=== PATIENT | female | born 1950 | race Caucasian/White ===

== ENCOUNTER → 2018-06-08 12:40 | Outpatient (CLI) | payer MEDICARE, OTHER, SELFPAY ==
--- NOTE | 2018-06-08 12:44 | VDLE_ITS ---
Reason For Study: LEG PAIN RIGHT LEFT CFV is compressible, spontaneous, phasic, CFV is compressible, spontaneous, phasic, competent and demonstrates normal competent, and demonstrates normal augmentation. augmentation. FV is compressible, spontaneous, phasic, FV is compressible, spontaneous, phasic, competent and demonstrates normal competent and demonstrates normal augmentation. augmentation. POP V is compressible, spontaneous, phasic, POP V is compressible, spontaneous, phasic, competent and demonstrates normal competent and demonstrates normal augmentation. augmentation. T/P Trunk is compressible. T/P Trunk is compressible. PTV is compressible. PTV is compressible. RT PerV is compressible. LT PerV is compressible. SFJ is competent SFJ is competent GSV is competent above knee GSV is competent above knee GSV is INCOMPETENT below knee with reflux GSV is INCOMPETENT below knee with reflux greater than .5 sec and diameter of .23 x .25 greater than .5 sec and diameter of .19 x .22 cm cm SSV is INCOMPETENT with reflux greater SSV is competent. than .5 sec and diameter of .22 x .28 cm. Procedure Exam performed in department. Interpretation Summary Deep veins of the lower extremities are bilaterally patent and compressible segmentally. There is no evidence of deep vein thrombosis on either side. Valvular competence appears intact within the proximal deep venous systems bilaterally. The greater saphenous veins appear bilaterally patent and compressible segmentally. Sapheno-femoral junctions are bilaterally competent . The right greater saphenous vein appears competent above the knee. The right greater saphenous vein appears incompetent below the knee. The left greater saphenous vein appears competent above the knee. The left greater saphenous vein appears incompetent below the knee. The right small saphenous vein is patent and incompetent. The left small saphenous vein is patent and competent. Ordering Physician: Valentín Yeung Referring Physician: Valentín Yeung Performed By: Valarie Horvath RVT
== END ==
PROVIDERS: Family Provider Family Medicine; PCP Family Medicine; Referring Provider Surgery; Visit Provider Surgery
DX: M79.605 Pain in left leg (principal); M79.604 Pain in right leg; R60.0 Localized edema; I83.10 Varicose veins of unspecified lower extremity with inflammation; I87.2 Venous insufficiency (chronic) (peripheral)
CPT/HCPCS: 93970

== ENCOUNTER → 2018-09-19 | Outpatient (CLI) | payer MEDICARE, OTHER, SELFPAY ==
--- NOTE | 2018-09-19 14:44 | US_ITS ---
STUDY: RENAL ULTRASOUND - COMPLETE REASON FOR EXAM: Female, 67 years old. UTI TECHNIQUE: Ultrasound evaluation of the kidneys was performed with real-time and static rodriguez-scale imaging. COMPARISON: None available. FINDINGS: RIGHT KIDNEY: Normal location of the right kidney, which is normal in size. The right kidney measures 12.3 cm. There is a normal cortex of the right kidney. There is no right renal mass or cyst. There are no right renal calculi. There is no right hydronephrosis. DISTAL RIGHT URETER: There is non-visualization of the distal right ureter. There is no demonstrated right ureterovesical junction calculus. There is a visualized right ureteral jet. LEFT KIDNEY: Normal location of the left kidney, which is normal in size. The left kidney measures 12.4 cm. There is a normal cortex of the left kidney. There is no left renal mass or cyst. There are no left renal calculi. There is no left hydronephrosis. DISTAL LEFT URETER: There is non-visualization of the distal left ureter. There is no demonstrated left ureterovesical junction calculus. There is a visualized left ureteral jet. BLADDER: The urinary bladder is partially distended and appears unremarkable. US/Kidney and Bladder IMPRESSION: Normal ultrasound of the kidneys and urinary bladder. Electronically Signed: Clarence Rome, at 16:31 EDT Tel , Service support ,
== END | disposition home or self-care (01) ==
LOC: US 14:40
PROVIDERS: Family Provider Family Medicine; PCP Family Medicine; Referring Provider Urology; Visit Provider Urology
DX: N39.0 Urinary tract infection, site not specified (principal)
CPT/HCPCS: 76770

== ENCOUNTER 2020-04-02 16:55 | Observation (INO) | payer MEDICARE, OTHER, SELFPAY ==
--- NOTE | 2020-03-30 09:55 | RAD_ITS ---
STUDY: X-RAY CHEST REASON FOR EXAM: Female, 69 years old. PREOP FOR BACK SURGERY. TECHNIQUE: PA and lateral views of the chest. COMPARISON: None. FINDINGS: The lungs are clear and expanded. There is no demonstrated pleural abnormality. Normal size heart. Normal mediastinum and rfansico. Normal visualized pulmonary arteries. Normal visualized aortic arch and descending thoracic aorta. Normal visualized thoracic spine. Normal visualized ribs, clavicles, and shoulders. There is no demonstrated abnormality of the visualized soft tissue structures of the upper abdomen. RAD/Chest PA and Lateral IMPRESSION: Normal x-ray examination of the chest. Electronically Signed: Jamal Chakraborty MD at 16:56 EST Tel , Service support ,
[2020-03-30 10:33] LABS: Absolute Lymphocyte Count 2.27 X10^3/uL (0.83-4.51); Basophil# 0.07 X10^3/uL; Eosinophil# 0.14 X10^3/uL; Eosinophils% 1.9 % (0-5); Hematocrit 44.2 % (37-47); Hemoglobin 14.8 g/dL (12.0-15.0); Lymphocyte # 2.27 X10^3/ul (4.0); Lymphocyte % 31.6 % (19-41); Mean Corp Hgb Conc 33.5 g/dL (32-36); Mean Corpuscular Hgb 28.8 pg (27.0-32.0); Mean Corpuscular Volume 86.2 fL (81-99); Mean Platelet Vol. 11.2 fl (6.2-12.0); Monocyte# 0.66 X10^3/uL; Monocyte% 9.2 % (0-10); NRBC Flagged by Analyzer 0 % (0-5); Neutrophil # 4.02 X10^3/uL (2.7-7.7); Platelet Count 256 K/mm3 (150-450); RBC Distribution Width CV 12.9 % (11.6-14.6); RBC Distribution Width SD 40.2 fl (35.1-43.9); Red Blood Count 5.13 M/mm3 (4.2-5.4); White Blood Count 7.2 K/mm3 (4.4-11.0)
[2020-03-30 10:46] LABS: International Normalized Ratio 1.1; Partial Thromboplast Time 31.7 Seconds (24.1-36.2); Prothrombin Time (Protime)PT. 13.8 SECONDS (11.7-14.9)
[2020-03-30 10:52] LABS: Hemoglobin A1c 7.1 % (3.8-5.6)
[2020-03-30 10:53] LABS: AST(SGOT) 43 U/L (15-37); Alanine Aminotransfer ALT/SGPT 76 U/L (13-56); Alkaline Phosphatase 96 U/L (45-117); Bilirubin, Direct 0.16 mg/dL (0.00-0.30); Globulin 4.1 g/dL (2.2-4.2); Protein, Total 8.1 g/dL (6.4-8.2)
[2020-04-02] VITALS (13 sets, daily range): BP systolic 116–164; BP diastolic 81–106; PULSE 66–143; RESP 12–18; TEMP 36.3–36.7; O2SAT 91–100; BMI 29.5
[2020-04-02] MEDS: Lactated Ringers 1,000 ML 100 ML IV ×3 (11:50→16:20)
[2020-04-02 11:56] LABS: Bedside Glucose 148 mg/dL (70-110)
--- NOTE | 2020-04-02 12:45 | RAD_ITS ---
STUDY: X-RAY - LUMBAR SPINE REASON FOR EXAM: Female, 69 years old. LAMINECTOMY L4-5 DISCECTOMY TECHNIQUE: Single intraoperative view(s) of the lumbar spine were obtained. COMPARISON: None FINDINGS: The metallic marker is seen posterior to the L4-L5 disc space level. RAD/Lumbar Spine 2 or 3 Views IMPRESSION: Localization instrument is seen posterior to the L4-L5 disc space. Electronically Signed: Aayush Mazariegos MD at 15:49 EST , Service support ,
[2020-04-02] MEDS: Cefazolin 1 GM/50 ML BAG IV ×2 (12:50→20:32)
[2020-04-02] MEDS: THROMBIN (RECOMBINANT) 20,000 UNIT VIAL 20000 UNIT TOPICAL (13:16)
--- NOTE | 2020-04-02 15:35 | PCM.PN.ORT ---
Subjective: The patient was seen and examined postoperatively in the PACU. She is doing well. Her pain is well controlled. She is resting comfortably. She is alert and answering questions and following commands. She has no complaints. - Physical Exam Vitals/I&O's: Vital Signs Temp Pulse Resp BP Pulse Ox 98.1 F 79 16 164/103 H 96 04/02/20 11:45 04/02/20 11:45 04/02/20 11:45 04/02/20 11:45 04/02/20 11:45 Oxygen Delivery Method Room Air Weight: 172 lb 6.424 oz Body Mass Index (BMI) 29.5 General: Alert, Oriented x3, Cooperative, No apparent distress HEENT: PERRLA, EOMI Neck: Supple, No JVD Lungs: Normal air movement Cardiovascular: Regular rate, Regular Rhythm Abdomen: Bowel Sounds Present, Soft, Non Tender, Non-Distended Extremities: No edema, Capillary Refill Less than 3 Seconds Skin: - - Dressing clean dry and intact Neurological: Cranial nerves II-XII grossly intact, Deep Tendon Reflexes 2+/4 and Symmetrical, Neuro grossly intact, Motor Exam 5/5 strength throughout Psych/Mental Status: Normal Affect, Appropriate Laboratory Results 04/02/20 11:35: POC Glucose 148 H Current Medications Lactated Ringer's () 1,000 mls @ 100 mls/hr IV .Q10H [facility] Last Admin: 04/02/20 11:50 Dose: 100 mls/hr Documented by: Cefazolin Sodium () 1 gm in 50 mls @ 100 mls/hr IV Q8H [facility] Morphine Sulfate (Morphine 4 Mg/Ml Syringe) 2 - 4 mg IV Q2H PRN PRN PRN Reason: Pain Score 6-10 Ondansetron HCl (Ondansetron 4 Mg/2 Ml Vial) 4 mg IV Q8H PRN PRN PRN Reason: NAUSEA Medical Necessity - Tobacco Use Smoking Status: Never smoker Tobacco Use: Non-smoker Assessment/Plan All Active Problems Lumbar herniated disc (Acute) Admit to floor See orders Pain control and mobilization as tolerated Advance diet as tolerated
--- NOTE | 2020-04-02 15:38 | PCM.OPRPT ---
Problem List (1) Lumbar herniated disc Status: Acute Report of Operation Date of Procedure: 04/02/20 Pre-Operative Diagnosis: Lumbar herniated disc, L5-S1 right. Lumbar stenosis, L5-S1 Post-Operative Diagnosis: Lumbar herniated disc, L5-S1 right. Lumbar stenosis, L5-S1 Surgery/Procedure Performed:: Right L5-S1 laminotomy discectomy Description of Surgical Findings:: Statement of medical necessity: The patient is a 69-year-old female with intractable back and right leg pain. Image studies confirm the above diagnosis. She has failed conservative treatment to include: Medicine, therapy, and injections. The patient opted for operative intervention, understanding the risks to include, but not limited to, infection, bleeding, damage to nerves, arteries, and veins, possibility of spinal fluid leak, continued pain, need for further surgery, deep vein thrombosis, pulmonary embolism, heart attack, risk of stroke, or . Description of procedure: The patient was identified in the preoperative holding area. There she received the preoperative antibiotics, Ancef, and then transferred to the operating suite. Once in the operating suite, after general endotracheal anesthesia was established, the patient was transferred to the [place] operating table in the prone position. All bony prominences were padded accordingly. The lumbar spine was prepped and draped in the standard surgical fashion. Midline incision was made and taken down to the lumbodorsal fascia. This was divided and subperiosteal dissection taken down to the level of the facet joint on the right side at L5-S1. Deep retractors were placed. At this point a curette was utilized in the L5-S1 foramen and a foraminotomy was performed using a Kerrison. The nerve was identified, and the nerve root was then retracted medially. A large subligamentous disc herniation was identified. A knife was used to perform an annulotomy and a large subligamentous disc was removed using pituitaries, any loose fragments were identified and removed and the wound was irrigated. Tisseel was placed over the dura as a hemostatic agent. The fascia was closed with #1 Vicryl, subcutaneous with 2-0 Vicryl, skin with 2-0 nylon. Sterile dressing was applied with 4 x 4, ABD, and tape. Sponge, instrument, and needle counts were correct at the end of the case. The patient was extubated and taken to the PACU without incident. Type of Anesthesia:: General Specimen's removed: Lumbar herniated disc Drains: None Estimated Blood Loss (mL): 25 cc Fluids Replaced: 1500 cc - Complications None - Admit VTE Documentation VTE Mechan Device Prophylaxis: SCD's
[2020-04-02 16:06] LABS: Bedside Glucose 137 mg/dL (70-110)
[2020-04-02] MEDS: Ondansetron 4 MG/2 ML Vial IV (17:48)
--- NOTE | 2020-04-02 18:56 | PCM.PROGNOTE ---
<Chema Wymanssica EQUIPMENT COORDINATOR - Last Filed: 04/02/20 19:02> Patient Problems: Active and Suspected Problems Lumbar herniated disc (Acute) Subjective: Patient seen and examined. Recently arrived to floor from PACU. Denies significant pain currently. Drowsy during assessment. - Physical Exam Vitals/I&O's: Vital Signs Temp Pulse Resp BP Pulse Ox 98.1 F 76 18 141/86 H 95 04/02/20 17:30 04/02/20 17:30 04/02/20 17:30 04/02/20 17:30 04/02/20 17:30 Oxygen Flow Rate (L/min) 2 Oxygen Delivery Method Nasal Cannula Weight: 172 lb 6.424 oz Body Mass Index (BMI) 29.5 Finger Stick Blood Glucose 137 Intake and Output for Last 24 Hours 03/31/20 04/01/20 04/02/20 23:59 23:59 23:59 Intake Total 2049 / 0 Output Total 950 / 950 Balance 1100 / 1100 General: Oriented x3, Cooperative, No apparent distress HEENT: Atraumatic, PERRLA, EOMI, Normocephalic Neck: Supple, No JVD, Negative Carotid Bruits Lungs: Clear to auscultation, Normal air movement Cardiovascular: Regular rate, No murmurs Abdomen: Bowel Sounds Present, Soft, Non Tender Extremities: No clubbing, No cyanosis, No edema, Capillary Refill Less than 3 Seconds Skin: No rashes, No breakdown Musculoskeletal: No Tenderness to Palpation of Joints or Extremities Neurological: Cranial nerves II-XII grossly intact, Neuro grossly intact Psych/Mental Status: Normal Affect, Appropriate Laboratory Results 04/02/20 11:35: POC Glucose 148 H 04/02/20 16:02: POC Glucose 137 H Current Medications Hydrocodone Bitart/Acetaminophen (Hydrocodone Bitartrate/Apap 5/325 Tablet) 1 - 2 tablet PO Q6H PRN PRN PRN Reason: Pain Score 1-10 Lactated Ringer's () 1,000 mls @ 100 mls/hr IV .Q10H [facility] Last Admin: 04/02/20 16:20 Dose: 100 mls/hr Documented by: Cefazolin Sodium () 1 gm in 50 mls @ 100 mls/hr IV Q8H [facility] Stop: 04/03/20 05:19 Sodium Chloride () 250 mls @ 15 mls/hr IV .[id number] PRN PRN Reason: Saline Flush Sodium Chloride () 250 mls @ 15 mls/hr IV .[id number] PRN PRN Reason: Additional IVPB Infusion Morphine Sulfate (Morphine 4 Mg/Ml Syringe) 2 - 4 mg IV Q2H PRN PRN PRN Reason: Pain Score 6-10 Morphine Sulfate (Morphine 2 Mg/Ml Syringe) 2 - 4 mg IV Q2H PRN PRN PRN Reason: Pain Score 6-10 Ondansetron HCl (Ondansetron 4 Mg/2 Ml Vial) 4 mg IV Q8H PRN PRN PRN Reason: NAUSEA Last Admin: 04/02/20 17:48 Dose: 4 mg Documented by: Sodium Chloride (0.9% Saline Lock 10 Ml Syringe) 10 - 40 ml IV UD PRN PRN Reason: SALINE FLUSH Medical Necessity - Tobacco Use Smoking Status: Never smoker Tobacco Use: Non-smoker Assessment/Plan All Active Problems Lumbar herniated disc (Acute) 1. Lumbar right herniated disc/lumbar stenosis [id number] post right L5-S1 laminectomy/discectomy by Dr. Hare. Management per surgery. 2. Atrial fibrillation-continue Cardizem, carvedilol. Does not appear to be on anticoagulation at baseline. 3. Hypertension-continue carvedilol, losartan, Cardizem. 4. Hyperlipidemia-continue statin. 5. Type 2 diabetes [id number]-[id number] with sliding scale insulin. 6. HAILEE-continue home CPAP regimen. DVT prophylaxis-SCDs This patient was seen by BERNARD Otoole under the supervision of Dr. Sapp. <Jarrett Sapp F - Last Filed: 04/02/20 19:15> - Physical Exam Vitals/I&O's: Vital Signs Temp Pulse Resp BP Pulse Ox 98.1 F 76 18 141/86 H 95 04/02/20 17:30 04/02/20 17:30 04/02/20 17:30 04/02/20 17:30 04/02/20 17:30 Oxygen Flow Rate (L/min) 2 Oxygen Delivery Method Nasal Cannula Weight: 172 lb 6.424 oz Body Mass Index (BMI) 29.5 Finger Stick Blood Glucose 137 Intake and Output for Last 24 Hours 03/31/20 04/01/20 04/02/20 23:59 23:59 23:59 Intake Total 2049 / 2049 Output Total 950 / 950 Balance 1100 / 1100 Laboratory Results 04/02/20 11:35: POC Glucose 148 H 04/02/20 16:02: POC Glucose 137 H Current Medications Hydrocodone Bitart/Acetaminophen (Hydrocodone Bitartrate/Apap 5/325 Tablet) 1 - 2 tablet PO Q6H PRN PRN PRN Reason: Pain Score 1-10 Carvedilol (Carvedilol 25 Mg Tablet) 25 mg PO BID [facility] Diltiazem HCl (Diltiazem Cd 120 Mg Capsule) 240 mg PO DAILY [facility] Lactated Ringer's () 1,000 mls @ 100 mls/hr IV .Q10H [facility] Last Admin: 04/02/20 16:20 Dose: 100 mls/hr Documented by: Cefazolin Sodium () 1 gm in 50 mls @ 100 mls/hr IV Q8H [facility] Stop: 04/03/20 05:19 Sodium Chloride () 250 mls @ 15 mls/hr IV .[id number] PRN PRN Reason: Saline Flush Sodium Chloride () 250 mls @ 15 mls/hr IV .[id number] PRN PRN Reason: Additional IVPB Infusion Insulin Human Lispro (Insulin Lispro 100 Unit/Ml Insuln.Pen) 0 unit SC ACHS [facility]; Protocol Losartan Potassium (Losartan Potassium 100 Mg Tablet) 100 mg PO DAILY [facility] Morphine Sulfate (Morphine 4 Mg/Ml Syringe) 2 - 4 mg IV Q2H PRN PRN PRN Reason: Pain Score 6-10 Morphine Sulfate (Morphine 2 Mg/Ml Syringe) 2 - 4 mg IV Q2H PRN PRN PRN Reason: Pain Score 6-10 Ondansetron HCl (Ondansetron 4 Mg/2 Ml Vial) 4 mg IV Q8H PRN PRN PRN Reason: NAUSEA Last Admin: 04/02/20 17:48 Dose: 4 mg Documented by: Pravastatin Sodium (Pravastatin 20 Mg Tablet) 10 mg PO QHS [facility] Sodium Chloride (0.9% Saline Lock 10 Ml Syringe) 10 - 40 ml IV UD PRN PRN Reason: SALINE FLUSH Addendum: Dr. Sapp I personally examined the patient and reviewed the chart. I agree with the above. 69-year-old female seen upon arrival to the third floor. She presented to the hospital for elective L5-S1 laminectomy on the right secondary to a right herniated disc and stenosis. Because she was seen upon admission to the floor, she is little bit drowsy, though easily arousable. Her medical history is stable, will continue with her Cardizem and Coreg for her A. fib and hypertension. Continue to monitor her blood sugars for type 2 diabetes. Because she still recovering from anesthesia, she is on 2 L nasal cannula. I do anticipate that this could be weaned overnight into tomorrow morning. OBSV E&M: [id number] Subsequent observation care L3
[2020-04-02] MEDS: HYDROcodone Bitartrate/Apap 5/325 Tablet PO (21:34)
[2020-04-02] MEDS: Insulin Lispro 100 UNIT/ML INSULN.PEN SC (21:34)
[2020-04-02] MEDS: Carvedilol 25 MG Tablet PO (21:35)
[2020-04-02] MEDS: Pravastatin 20 MG Tablet 10 MG PO (21:36)
[2020-04-02 22:35] LABS: Bedside Glucose 214 mg/dL (70-110)
[2020-04-03] MEDS: Phenol/Sodium Phenolate 180ML 5 SPRAY MM ×2 (00:05→06:29)
[2020-04-03] MEDS: Lactated Ringers 1,000 ML 100 ML IV (00:06)
[2020-04-03 03:30] VITALS: BP 140/88; PULSE 84; RESP 16; TEMP 37.1; O2SAT 99
[2020-04-03] MEDS: Cefazolin 1 GM/50 ML BAG IV (05:06)
[2020-04-03] MEDS: Insulin Lispro 100 UNIT/ML INSULN.PEN SC (06:27)
[2020-04-03 06:40] LABS: Bedside Glucose 161 mg/dL (70-110)
[2020-04-03 08:00] VITALS: BP 146/85; PULSE 81; RESP 16; TEMP 36.8; O2SAT 100
--- NOTE | 2020-04-03 08:01 | DS.PCM_ITS ---
Discharge Date and Diagnosis - Problem List Patient Problems: Active and Suspected Problems Lumbar herniated disc (Acute) Date of Admission: 04/02/20 Date of Discharge: 04/03/20 - Primary Discharge Diagnosis Acute Problems: Active Problems Lumbar herniated disc (Acute) Hospital Course and Treatment Internal medicine for medical management Operations: - - Right L4-5 laminotomy discectomy Summary of Care Provided: The patient is a 69 year old F [] underwent a right L4-5 laminotomy discectomy on 04/02/2020. She was subsequently admitted to the floor for observation. Internal medicine was consulted for medical management. She did well overnight. Her pain was well controlled. No medical issues. She was subsequently discharged on 04/03/2020 to follow-up in clinic in [address] Hare for suture removal Patient Problems: Active and Suspected Problems Lumbar herniated disc (Acute) Subjective: The patient was seen and examined. She is postop day 1 status post right L4-5 laminotomy discectomy. She is sitting up in bed comfortably eating breakfast. Her pain is well controlled. She has no complaints. - Physical Exam Vitals/I&O's: Vital Signs Temp Pulse Resp BP Pulse Ox 98.7 F 84 16 140/88 H 99 04/03/20 03:30 04/03/20 03:30 04/03/20 03:30 04/03/20 03:30 04/03/20 03:30 Oxygen Flow Rate (L/min) 2 Oxygen Delivery Method Nasal Cannula Weight: 172 lb 6.424 oz Body Mass Index (BMI) 29.5 Finger Stick Blood Glucose 137 Intake and Output for Last 24 Hours 04/01/20 04/02/20 04/03/20 23:59 23:59 23:59 Intake Total 2523.33 / 2523.33 856.67 / 856.67 Output Total 950 / 1950 1999 Balance 1573.33 / 573.33 -1143.33 / -1143.33 General: Alert, Oriented x3, No apparent distress HEENT: PERRLA, EOMI Neck: Supple, No JVD Lungs: Normal air movement Cardiovascular: Regular rate, Regular Rhythm Abdomen: Bowel Sounds Present, Soft, Non Tender, Non-Distended Extremities: No cyanosis, No edema, Capillary Refill Less than 3 Seconds, No Calf Tenderness Skin: - - Dressing is clean dry and intact Neurological: Cranial nerves II-XII grossly intact, Deep Tendon Reflexes 2+/4 and Symmetrical, Neuro grossly intact, Motor Exam 5/5 strength throughout Psych/Mental Status: Normal Affect, Appropriate Laboratory Results 04/02/20 11:35: POC Glucose 148 H 04/02/20 16:02: POC Glucose 137 H 04/02/20 21:31: POC Glucose 214 H 04/03/20 06:26: POC Glucose 161 H Current Medications Hydrocodone Bitart/Acetaminophen (Hydrocodone Bitartrate/Apap 5/325 Tablet) 1 - 2 tablet PO Q6H PRN PRN PRN Reason: Pain Score 1-10 Last Admin: 04/02/20 21:34 Dose: 2 tablet Documented by: Carvedilol (Carvedilol 25 Mg Tablet) 25 mg PO BID [facility] Last Admin: 04/02/20 21:35 Dose: 25 mg Documented by: Diltiazem HCl (Diltiazem Cd 120 Mg Capsule) 240 mg PO DAILY [facility] Lactated Ringer's () 1,000 mls @ 100 mls/hr IV .Q10H [facility] Last Infusion: 04/03/20 05:36 Dose: 100 mls/hr Documented by: Sodium Chloride () 250 mls @ 15 mls/hr IV .[id number] PRN PRN Reason: Saline Flush Sodium Chloride () 250 mls @ 15 mls/hr IV .[id number] PRN PRN Reason: Additional IVPB Infusion Insulin Human Lispro (Insulin Lispro 100 Unit/Ml Insuln.Pen) 0 unit SC ACHS [facility]; Protocol Last Admin: 04/03/20 06:27 Dose: 1 u Documented by: Losartan Potassium (Losartan Potassium 100 Mg Tablet) 100 mg PO DAILY [facility] Morphine Sulfate (Morphine 4 Mg/Ml Syringe) 2 - 4 mg IV Q2H PRN PRN PRN Reason: Pain Score 6-10 Morphine Sulfate (Morphine 2 Mg/Ml Syringe) 2 - 4 mg IV Q2H PRN PRN PRN Reason: Pain Score 6-10 Ondansetron HCl (Ondansetron 4 Mg/2 Ml Vial) 4 mg IV Q8H PRN PRN PRN Reason: NAUSEA Last Admin: 04/02/20 17:48 Dose: 4 mg Documented by: Pantoprazole Sodium (Pantoprazole Sodium 20 Mg Tablet) 20 mg PO DAILY [facility] Phenol/Menthol (Phenol/Sodium Phenolate 180ml) 5 spray MM Q2H PRN PRN PRN Reason: SORE THROAT Last Admin: 04/03/20 06:29 Dose: 5 spray Documented by: Pravastatin Sodium (Pravastatin 20 Mg Tablet) 10 mg PO QHS [facility] Last Admin: 04/02/20 21:36 Dose: 10 mg Documented by: Prochlorperazine Edisylate (Prochlorperazine 10 Mg/2 Ml Vial) 10 mg IV Q6H PRN PRN PRN Reason: Nausea Sodium Chloride (0.9% Saline Lock 10 Ml Syringe) 10 - 40 ml IV UD PRN PRN Reason: SALINE FLUSH Discharge Diet: No Restrictions Discharge Activity: - - No bending twisting or lifting greater than 5 pounds. Daily dry dressing changes with iodine to incision. Keep dressing clean dry and intact. Okay to cover incision with waterproof dressing to shower. No bath tubs, swimming pools, hot tubs, etc. May resume sexual activity in: 1-2 weeks Weight Bearing Status: Weight bearing as tolerated Call your doctor if your incision/area has: Continuous Slow Oozing, Sudden Increased Bleeding, Increased Pain/ Swelling, Increased Redness, Foul Smelling Discharge, Swelling at the incision site Call your doctor if you observe: Fever of 101 or Higher, Coldness, Increased Pain, Numbness or Tingling, Change in Color, Inability to urinate, Inability to have a bowel movement, Using more than one pad per hour, Shortness of breath, Dizziness, Fainting spells, Swelling in the ankles, Chest pain, Prolonged hiccoughing, Increased palpitations (irregular heartbeat), Calf discomfort, Uncontrolled pain Change Dressing in (Days):: 1 - Change dressing daily Cleanse incision/area with: Do not get Incision Wet, Keep Dressing Clean & Dry Home Medications: Medications to take at Discharge Ascorbic Acid [Vitamin C] 500 mg PO DAILY 03/19/20 Carvedilol [Coreg (Beta Jeffrey)] 25 mg PO BID 03/19/20 Cranberry 500 mg PO DAILY 03/19/20 Diltiazem HCl [Cartia Xt] 240 mg PO DAILY 03/19/20 Dulaglutide [Trulicity] 1.5 mg SQ QWEEK 03/19/20 Glucosam/Beau-Msm1/C/Jam/Bosw [Osteo Bi-Flex Caplet] 1 ea PO DAILY 03/19/20 Lansoprazole 15 mg PO DAILY 03/19/20 Losartan Potassium [Cozaar] 100 mg PO DAILY 03/19/20 Niacin 1,000 mg PO DAILY 03/19/20 Aladdin-3 Fatty Acids/Fish Oil [Fish Oil 1,000 mg Capsule] 1 ea PO DAILY 03/19/20 Pravastatin [Pravachol] 10 mg PO QHS 03/19/20 Hydrocodone Bitart/Apap 5-325 [[place] 5MG-325MG] 1 tablet PO Q4H PRN PRN 7 Days #28 tablet 04/03/20 Following Prescriptions Were Given to Patient: Hydrocodone Bitart/Apap 5-325 [[place] 5MG-325MG] 1 tablet PO Q4H PRN PRN 7 Days #28 tablet PRN Reason: Pain Transmission Status: Sent to [id number] Primary Care Physician: Serge Black MD [Primary Care Provider] - Please Follow Up With: Ryan Hare DO - 3 weeks as scheduled Disposition: Home Minutes spent on discharge:: 15 Patient Condition:: Good Medical Necessity - Tobacco Use Smoking Status: Never smoker Tobacco Use: Non-smoker Meaningful Use Info Meaningful Use Diagnoses (Choose all that apply): None applicable
[2020-04-03] MEDS: HYDROcodone Bitartrate/Apap 5/325 Tablet PO (08:10)
[2020-04-03] MEDS: Pantoprazole Sodium 20 MG Tablet PO (08:11)
[2020-04-03] MEDS: Losartan Potassium 100 MG Tablet PO (08:11)
[2020-04-03] MEDS: dilTIAZem CD 120 MG Capsule 240 MG PO (08:11)
[2020-04-03] MEDS: Carvedilol 25 MG Tablet PO (08:11)
--- NOTE | 2020-04-03 08:40 | PCM.PN.HOSP ---
Patient Problems: Active and Suspected Problems Lumbar herniated disc (Acute) Reason for Visit: Follow-up for lumbar spine surgery, laminectomy/discectomy Objective: Seen and examined. Patient has mild back pain and muscle stiffness after surgery. Heart rate and blood pressure are normal. No fever. Physical exam General: Alert, Oriented x3, Cooperative HEENT: Atraumatic, PERRLA, EOMI, Normocephalic Oral: No Gingival or Mucosal Lesions/ Ulcerations Neck: Supple, No JVD, Negative Carotid Bruits Lungs: Air entry diminished in bilateral lung bases. No crepitation/rhonchi no hypoxia Cardiovascular: Regular rate, Regular Rhythm, Normal S1, Normal S2, No murmurs Abdomen: Bowel Sounds Present, Soft, Non Tender, Non-Distended : No renal angle tenderness. No suprapubic tenderness. Extremities: No edema, Capillary Refill Less than 3 Seconds Skin: No rashes, No breakdown Musculoskeletal: No Tenderness to Palpation of Joints or Extremities Spine: Lumbar surgical dressing is dry. Paravertebral muscle tenderness present. Neurological: Cranial nerves II-XII grossly intact, Deep Tendon Reflexes 2+/4 and Symmetrical, Neuro grossly intact Psych/Mental Status: Normal Affect, Appropriate. Vitals/I&O's: Vital Signs Temp Pulse Resp BP Pulse Ox 98.2 F 81 16 146/85 H 100 04/03/20 08:00 04/03/20 08:00 04/03/20 08:00 04/03/20 08:00 04/03/20 08:00 Oxygen Flow Rate (L/min) 2 Oxygen Delivery Method Room Air Weight: 172 lb 6.424 oz Body Mass Index (BMI) 29.5 Finger Stick Blood Glucose 137 Intake and Output for Last 24 Hours 04/01/20 04/02/20 04/03/20 23:59 23:59 23:59 Intake Total 2523.33 / 2523.33 856.67 / 856.67 Output Total 950 / 1950 1999 / 1999 Balance 1573.33 / 573.33 -1143.33 / -1143.33 Laboratory Results 04/02/20 11:35: POC Glucose 148 H 04/02/20 16:02: POC Glucose 137 H 04/02/20 21:31: POC Glucose 214 H 04/03/20 06:26: POC Glucose 161 H Current Medications Hydrocodone Bitart/Acetaminophen (Hydrocodone Bitartrate/Apap 5/325 Tablet) 1 - 2 tablet PO Q6H PRN PRN PRN Reason: Pain Score 1-10 Last Admin: 04/03/20 08:10 Dose: 2 tablet Documented by: Carvedilol (Carvedilol 25 Mg Tablet) 25 mg PO BID [facility] Last Admin: 04/03/20 08:11 Dose: 25 mg Documented by: Diltiazem HCl (Diltiazem Cd 120 Mg Capsule) 240 mg PO DAILY [facility] Last Admin: 04/03/20 08:11 Dose: 240 mg Documented by: Lactated Ringer's () 1,000 mls @ 100 mls/hr IV .Q10H [facility] Last Infusion: 04/03/20 05:36 Dose: 100 mls/hr Documented by: Sodium Chloride () 250 mls @ 15 mls/hr IV .[id number] PRN PRN Reason: Saline Flush Sodium Chloride () 250 mls @ 15 mls/hr IV .[id number] PRN PRN Reason: Additional IVPB Infusion Insulin Human Lispro (Insulin Lispro 100 Unit/Ml Insuln.Pen) 0 unit SC [facility]; Protocol Last Admin: 04/03/20 06:27 Dose: 1 u Documented by: Losartan Potassium (Losartan Potassium 100 Mg Tablet) 100 mg PO DAILY [facility] Last Admin: 04/03/20 08:11 Dose: 100 mg Documented by: Morphine Sulfate (Morphine 4 Mg/Ml Syringe) 2 - 4 mg IV Q2H PRN PRN PRN Reason: Pain Score 6-10 Morphine Sulfate (Morphine 2 Mg/Ml Syringe) 2 - 4 mg IV Q2H PRN PRN PRN Reason: Pain Score 6-10 Ondansetron HCl (Ondansetron 4 Mg/2 Ml Vial) 4 mg IV Q8H PRN PRN PRN Reason: NAUSEA Last Admin: 04/02/20 17:48 Dose: 4 mg Documented by: Pantoprazole Sodium (Pantoprazole Sodium 20 Mg Tablet) 20 mg PO DAILY [facility] Last Admin: 04/03/20 08:11 Dose: 20 mg Documented by: Phenol/Menthol (Phenol/Sodium Phenolate 180ml) 5 spray MM Q2H PRN PRN PRN Reason: SORE THROAT Last Admin: 04/03/20 06:29 Dose: 5 spray Documented by: Pravastatin Sodium (Pravastatin 20 Mg Tablet) 10 mg PO QHS MARIUSZ Last Admin: 04/02/20 21:36 Dose: 10 mg Documented by: Prochlorperazine Edisylate (Prochlorperazine 10 Mg/2 Ml Vial) 10 mg IV Q6H PRN PRN PRN Reason: Nausea Sodium Chloride (0.9% Saline Lock 10 Ml Syringe) 10 - 40 ml IV UD PRN PRN Reason: SALINE FLUSH STROKE Vital Signs/Narrative: Vital Signs Temp Pulse Resp BP Pulse Ox 04/03/20 08:00 98.2 F 81 16 146/85 H 100 Medical Necessity - Tobacco Use Smoking Status: Never smoker Tobacco Use: Non-smoker Assessment/Plan All Active Problems Lumbar herniated disc (Acute) This 69-year-old female was admitted for elective L5-S1 lumbar herniated disc with history of lumbar spinal canal stenosis L5-S1. Patient had right L5-S1 laminectomy and discectomy. 1. Lumbar right herniated disc/lumbar stenosis Q0-R0-[id number] had chronic back pain with radiation to right leg. Surgical dressing is dry. Patient is being discharged by surgeon. Patient is medically stable and follow with PCP. Anticoagulation for DVT prophylaxis as per surgeon discretion. 2. Atrial fibrillation-continue Cardizem, carvedilol. Does not appear to be on anticoagulation at baseline. 3. Hypertension-continue carvedilol, losartan, Cardizem. 4. Hyperlipidemia-continue statin. 5. Type 2 diabetes mellitus-glucose are between 137, 214 and 161. Patient on Trulicity at home. 6. HAILEE-continue home CPAP regimen. Patient is being discharged by spine surgeon Dr. Hare. Follow-up PCP. Laboratory Results 04/02/20 16:02: POC Glucose 137 H 04/02/20 21:31: POC Glucose 214 H 04/03/20 06:26: POC Glucose 161 H Clinical Impression(s) from Imaging Studies Chest X-Ray 03/30/20 09:55 IMPRESSION: Normal x-ray examination of the chest. Electronically Signed: Jamal Chakraborty MD at 16:56 EST Tel , Service support , Lumbar Spine X-Ray 04/02/20 12:45 IMPRESSION: Localization instrument is seen posterior to the L4-L5 disc space. Electronically Signed: Aayush Mazariegos MD at 15:49 EST , Service support , Inpatient E&M: 52503 Subs Hosp L2
[2020-04-03 10:19] VITALS: O2SAT 99
--- NOTE | 2020-04-03 10:29 | PHA.DC.MC ---
Pharmacy Service has performed discharge medication reconciliation and counseling for this patient. 1. NORCO 5/325MG 1T PO Q4H PRN PAIN X 7 DAYS The patient's discharge medication list was reviewed for discrepancies and discrepancies were resolved. Home Medications Ascorbic Acid [Vitamin C] 500 mg PO DAILY 03/19/20 Carvedilol [Coreg (Beta Jeffrey)] 25 mg PO BID 03/19/20 Cranberry 500 mg PO DAILY 03/19/20 Diltiazem HCl [Cartia Xt] 240 mg PO DAILY 03/19/20 Dulaglutide [Trulicity] 1.5 mg SQ QWEEK 03/19/20 Glucosam/Beau-Msm1/C/Jam/Bosw [Osteo Bi-Flex Caplet] 1 ea PO DAILY 03/19/20 Lansoprazole 15 mg PO DAILY 03/19/20 Losartan Potassium [Cozaar] 100 mg PO DAILY 03/19/20 Niacin 1,000 mg PO DAILY 03/19/20 [place]-3 Fatty Acids/Fish Oil [Fish Oil 1,000 mg Capsule] 1 ea PO DAILY 03/19/20 Pravastatin [Pravachol] 10 mg PO QHS 03/19/20 Hydrocodone Bitart/Apap 5-325 [[place] 5MG-325MG] 1 tab PO Q4H PRN PRN 7 Days #28 tab 04/03/20 The patient was counseled on the following discharge medications and changes in medications for homegoing were reviewed. The Reason for Use, instructions for use, and potential side effects were reviewed for all new medications. The patient's questions regarding all of their medications were answered. The patient was able to verbally demonstrate an understanding of their discharge medications. Patient counseled by pharmacy operations specialistBen.
--- NOTE | 2020-04-03 10:40 | CASEMGMT ---
RN CM CORRECTIONAL THERAPY TEACHER CM to room to meet with patient for initial transition planning/care coordination assessment. RN ARNOLD introduced self and role at [facility]. Pt voices understanding and consents to assessment at this time. Pt sitting up in chair in room in no distress at this time. Son, Jordan, @ bedside. Pt is A/O at this time and answers all questions appropriately. Care providers, pharmacy, and demographics verified/updated at this time. PCP: Dr Wooten Specialists: Dr Hare--ortho, Dr Hernandez--cardiology in [place] Preferred Pharmacy: [facility] Insurance: [employer] [facility] Prescription Benefit: Yes Living Will/HPOA: Has both LW and Healthcare POA, who is her , Flo LNOK: , Flo. 2 sons: Jordan and Lamonte Living Arrangements: Lives w/her , Flo. Son and 19-yr-old grandson live with them. They live in a one-story home w/3 steps to enter. Home is handicap accessible. had previous stroke and pt helps assist him and manages home mgmt tasks. Son able to help. Pt would like to hire cleaning lady. She is aware insurance does not pay for this and cost would be [id number]. DME: States has the following DME: shower chair, cane, walker, rollator, CPAP, rails/grab bars, collar shaper operator, sock aid Pt states no need for further DME at this time. HHC/SNF: No history of either. Declines need for HHC. States will f/u with Dr Hare at her next appt and will discuss possible OP therapy at that time. Pt wishes to return home and states has no concerns with going home at time of discharge. CM to follow for any discharge planning/needs. Pt voices no concerns/needs at this time. Advised pt to ask for CM if any questions/concerns/needs arise. Voices understanding. PLAN: Home w/family support and discharge plans in place. Theo OWENS RN, CM
[2020-04-03 11:43] VITALS: BP 121/66; PULSE 86; RESP 18; TEMP 36.7; O2SAT 96
== END 2020-04-03 11:45 | disposition home or self-care (01) ==
LOC: AC 17:07 → MS3 17:07
PROVIDERS: Anesthesiology; Admitting Provider Orthopaedic Surgery; PCP Family Medicine; Referring Provider Orthopaedic Surgery; Visit Provider Orthopaedic Surgery
PROC: (CPT 63030; principal; 2020-04-02 12:15)
DX: M48.061 Spinal stenosis, lumbar region without neurogenic claudication (principal); M51.26 Other intervertebral disc displacement, lumbar region; M47.26 Other spondylosis with radiculopathy, lumbar region; E11.9 Type 2 diabetes mellitus without complications; Z79.01 Long term (current) use of anticoagulants; K21.9 Gastro-esophageal reflux disease without esophagitis; I10 Essential (primary) hypertension; G47.30 Sleep apnea, unspecified; E78.5 Hyperlipidemia, unspecified; G47.33 Obstructive sleep apnea (adult) (pediatric); Z79.899 Other long term (current) drug therapy; Z79.84 Long term (current) use of oral hypoglycemic drugs
CPT/HCPCS: 00670; 63030; 36415; 71046; 72100; 76000; 80076; 82962; 83036; 85025; 85610; 85730; 96361; 96365; 96366; 96375; 97162; 97166; 99218; J7120; G0378; G0379; J2405

== ENCOUNTER → 2021-11-15 | Outpatient (CLI) | payer MEDICARE, OTHER, SELFPAY ==
[2021-11-15 15:46] LABS: Erythrocyte Sedimentation Rate 9 mm/hr (0-30)
[2021-11-15 15:53] LABS: CRP < 2.90 mg/L (0.0-3.0); Rheumatoid Factor < 10.0 IU/mL (<15)
[2021-11-17 16:22] LABS: ANTINUCLEAR ANTIBODIES DIRECT Negative (Negative)
[2021-11-25 08:22] LABS: HLA B27 Negative (.)
== END | disposition home or self-care (01) ==
LOC: MTLAB 11:51
PROVIDERS: PCP Family Medicine; Referring Provider Physician Assistant; Visit Provider Physician Assistant
DX: R07.89 Other chest pain (principal); R22.2 Localized swelling, mass and lump, trunk
CPT/HCPCS: 36415; 81374; 85652; 86038; 86140; 86225; 86235; 86431

== ENCOUNTER → 2021-12-15 | Outpatient (CLI) | payer MEDICARE, OTHER, SELFPAY ==
--- NOTE | 2021-12-15 07:07 | CT_ITS ---
STUDY: CT CHEST WITHOUT CONTRAST REASON FOR EXAM: Female, 71 years old. CHEST PAIN SINCE JULY 2021 RADIATION DOSAGE (If Supplied By Facility): CTDIvol = ( 15.97 ) mGy, DLP = ( 580.28 ) mGycm TECHNIQUE: Transaxial imaging was performed without the administration of intravenous contrast material. Multiplanar coronal and sagittal images were reformatted. Individualized dose optimization techniques were used for this CT. COMPARISON: No relevant priors. FINDINGS: CHEST There is a 6.7 mm hypodense nodule in the midportion of the right lobe of the thyroid. There is also evidence of a 6 mm hypodense nodule in the isthmus. Small benign-appearing bilateral axillary lymph nodes. Minimal increased markings at the lung bases slightly more prominent at the right lung base suggestive of mild scarring and/or dependent atelectasis. There is no demonstrated pleural abnormality. There are calcifications of the coronary arteries. There is mild cardiac enlargement. Normal mediastinum. Normal hilar regions. Normal unenhanced pulmonary arteries. There is atherosclerotic calcification of the aortic arch. There are multi-level degenerative changes of the thoracic spine. Increased kyphosis. There is no demonstrated abnormality of the visualized upper abdomen. CT/Chest without Contrast IMPRESSION: Mild degree of increased markings at the lung bases suggestive of atelectasis and/or scarring. No acute abnormality seen. Electronically Signed: Aayush Mazariegos MD at 15:14 EDT ,
== END | disposition home or self-care (01) ==
LOC: CT 06:59
PROVIDERS: PCP Family Medicine; Referring Provider Physician Assistant; Visit Provider Physician Assistant
DX: M94.0 Chondrocostal junction syndrome [Tietze] (principal)
CPT/HCPCS: 71250

== ENCOUNTER 2023-03-13 11:39 | Observation (INO) | payer MEDICARE, OTHER, SELFPAY ==
[2023-03-13 11:42] VITALS: BMI 28.1
--- NOTE | 2023-03-13 11:53 | PCM.HP.STD ---
HPI - General General Date of Admission: 03/13/23 Date of Service: 03/13/23 Chief Complaint: Right upper quadrant soreness HPI Narrative MARY JO ROTH, is a 72 F who presents with right upper quadrant soreness. Patient symptoms started 3 days prior to her admission when she noticed persistent right upper quadrant soreness. Prior to that patient had noticed abdominal discomfort with fatty meals. In view of worsening symptoms patient presented to the emergency department at an outside hospital. CT of the abdomen and pelvis obtained demonstrated questionable gallbladder thickening. Subsequently did have a confirmation of the suspected diagnosis with an ultrasound which demonstrated cholelithiasis cholecystitis as well as dilated common bile duct. Intraductal calculus not identified. Patient was transferred to [facility] for subsequent care. [facility] Medical History (Updated 03/13/23 @ 12:[address] Duncan Daniel MD) Cholecystitis, acute with cholelithiasis Home Medications carvedilol 25 mg tablet 25 mg PO BID BP 03/19/20 [History Last Taken 03/12/23 21:00] diltiazem HCl 120 mg capsule,extended release 24 hr 240 mg PO DAILY BP 03/19/20 [History Last Taken 03/12/23 08:00] dulaglutide 1.5 mg/0.5 mL subcutaneous pen injector 1.5 mg SQ QWEEK diabetes 03/19/20 [History Last Taken 03/12/23 10:00] lansoprazole 15 mg capsule,delayed release 15 mg PO DAILY GERD 03/19/20 [History Last Taken 03/12/23 12:14] losartan 100 mg tablet 100 mg PO DAILY BP 03/19/20 [History Last Taken 03/12/23 08:00] pravastatin 20 mg tablet 10 mg PO QHS CHOLESTEROL 03/19/20 [History Last Taken 03/12/23 22:00] rivaroxaban 20 mg tablet (Xarelto) 20 mg PO Q24H PRN afib 03/13/23 [History Last Taken 03/12/23 17:00] Allergy/AdvReac Type Severity Reaction Status Date / Time sulfamethoxazole Allergy Rash Verified 12/17/21 10:21 [From Bactrim] trimethoprim [From Bactrim] Allergy Rash Verified 12/17/21 10:21 codeine AdvReac Nausea/Vom/ Verified 12/17/21 10:21 Diarrhea lisinopril AdvReac cough Verified 12/17/21 10:21 Social History Smoking Status: Never smoker ROS ROS Narrative GENERAL: denies fever, chills, night sweats, weight loss, anorexia HEENT: denies headache, sinus congestion, or drainage, dysphagia RESPIRATORY: denies cough, sputum production, shortness of breath, dyspnea on exertion CARDIAC: denies chest pain, palpitations, orthopnea, PND GASTROINTESTINAL: abdominal pain, nausea, GENITOURINARY: denies dysuria, urgency, frequency, heamaturia EXTREMITY: denies swelling MUSCULOSKELETAL: denies current joint pain or tenderness NEUROLOGIC: denies focal numbness, weakness, tingling HEMATOLOGIC: denies easy bruising and/or hemorrhage INTEGUMENT: denies rashes PSYCHIATRIC: denies suicidal or homicidal ideation Vital Signs Vital Signs Vital Signs: Weight Weight: 74.389 kg Body Mass Index (BMI) 28.1 Physical Exam Narrative GENERAL: cooperative HEENT: Atraumatic; normocephalic EYES; Anicteric, Normal Conjunctiva NECK; supple, normal thyroid, RESPIRATORY: Diminished to auscultation CARDIOVASCULAR: Regular S1 S2, GI: soft, normoactive bowel sounds, : No Renal angle tenderness; EXTREMITIES: No edema, no clubbing, MUSCULOSKELETAL: no muscle wasting NEURO: Awake; no lateralizing signs. SKIN: No Rash PSYCH; Flat affect Results Lab / Micro Data 03/13/23 12:03 03/13/23 12:03 Assessment & Plan Assessment/Plan (1) Cholecystitis, acute with cholelithiasis: PLAN: Plan Patient is a 72-year-old lady transferred from an outside hospital with right upper quadrant abdominal pain with a diagnosis of gallstone with acute cholecystitis 1. Acute cholecystitis ? Secondary to cholelithiasis. Admitted to regular nursing floor currently managed with bowel rest pain medication antinausea medication consultation placed to general surgery Case discussed with Dr. Ryan 2. Acute cholelithiasis ? Patient presented with acute cholecystitis ultrasound demonstrated dilated CBD. Consult has been placed with Dr. Shelley with gastroenterology for possible ERCP 3. Hypertension - Blood pressure controlled, home medications continued with dose adjustment as needed 4. Diabetes mellitus type II -patient's oral hypoglycemics held. Placed on long acting insulin, Accu-Cheks a.c. and at bedtime and covered with sliding scale insulin 5. Paroxysmal A-fib ? Rate controlled on systemic anticoagulation with rivaroxaban 6. Obstructive sleep apnea ? Patient is on CPAP at night 7. Dyslipidemia -Patient is on statin therapy, continued at home dose 8. DVT prophylaxis ? Patient is on rivaroxaban Time spent in the patient's overall evaluation,decision-making process, review of diagnostic data, adjustment of management, discussion with other providers, nursing nursing and ancillary staff involved in patient's care documentation, 75 minutes Advance planning; did discuss with the patient regarding advanced directives as well as CODE STATUS. Did explain the various scenarios involved ( FULL CODE, DNR CCA, DNR CCA with no intubation, and DNR CC and what each meant) patient elected to remain full code with CPR and intubation. Order was placed. Time spent on discussion 18 minutes. Charges/Coding Visit Charges Inpatient E&M: 98879 Init Hosp L3 Procedures Hospitalists Procedures: 63804 Advncd Care Plan 30 Min
[2023-03-13 12:07] VITALS: BP 172/108; PULSE 98; RESP 18; TEMP 37.1; O2SAT 98
[2023-03-13 12:12] LABS: Absolute Lymphocyte Count 1.48 X10^3/uL (0.83-4.51); Absolute Neutrophil Count 5.9 X10^3/uL (2.0-7.7); Basophil# 0.05 X10^3/uL; Basophil% 0.6 % (0-1); Eosinophil# 0.13 X10^3/uL; Eosinophils% 1.5 % (0-5); Hematocrit 44.4 % (37-47); Hemoglobin 14.6 g/dL (12.0-15.0); Lymphocyte # 1.48 X10^3/ul (0.83-4.51); Lymphocyte % 17.3 % (19-41); Mean Corp Hgb Conc 32.9 g/dL (32-36); Mean Corpuscular Hgb 28.1 pg (27.0-32.0); Mean Corpuscular Volume 85.4 fL (81-99); Mean Platelet Vol. 10.9 fl (6.2-12.0); Monocyte# 0.95 X10^3/uL; Monocyte% 11.1 % (0-10); NRBC Flagged by Analyzer 0 % (0-5); Neutrophil # 5.93 X10^3/uL (2.7-7.7); Neutrophil % 69.1 % (47-70); Platelet Count 226 K/mm3 (150-450); RBC Distribution Width CV 12.9 % (11.6-14.6); RBC Distribution Width SD 40.2 fl (35.1-43.9); White Blood Count 8.6 K/mm3 (4.4-11.0)
[2023-03-13 12:29] LABS: AST(SGOT) 84 U/L (15-37); Alanine Aminotransfer ALT/SGPT 223 U/L (13-56); Albumin, Serum 3.6 g/dL (3.2-5.0); Alkaline Phosphatase 145 U/L (45-117); Anion Gap 7 (5-15); BUN 22 mg/dL (7-18); BUN/Creat Ratio 12.8 RATIO (10-20); Calcium,Total 9.4 mg/dL (8.5-10.1); Chloride 112 mmol/L (98-107); Creatinine, Serum 1.72 mg/dL (0.55-1.02); EST Glomerular Filtration Rate 31 mL/min (>60); Est Glom Filt Rate - Afr Amer 37 mL/min (>60); Estimated Creatinine Clearance 25.15 ml/min; Globulin 3.9 g/dL (2.2-4.2); Glucose 166 mg/dL (74-106); Magnesium 2.3 mg/dL (1.6-2.6); Potassium 3.6 mmol/L (3.5-5.1); Protein, Total 7.5 g/dL (6.4-8.2); Sodium Level 143 mmol/L (136-145)
[2023-03-13 14:00] VITALS: O2SAT 98
[2023-03-13] MEDS: Pantoprazole Sodium 40 MG Tablet PO (14:23)
[2023-03-13] MEDS: Carvedilol 25 MG Tablet PO ×2 (14:23→20:44)
[2023-03-13] MEDS: dilTIAZem CD 240 MG Capsule PO (14:23)
[2023-03-13] MEDS: KCL 20MEQ in 0.45%NS 20 MEQ/1,000 ML IV.SOLN. 125 MEQ IV ×2 (15:32→23:45)
[2023-03-13] MEDS: Losartan Potassium 100 MG Tablet PO (15:34)
[2023-03-13] MEDS: Ondansetron 4 MG/2 ML Vial IV (15:34)
--- NOTE | 2023-03-13 15:58 | EX.PCM.CON.S ---
Assessment & Plan Assessment/Plan (1) Choledocholithiasis with acute cholecystitis: PLAN: Patient is a 72-year-old female with past medical and past surgical history noted as per HPI above who presents as a direct transfer due to diagnosis of choledocholithiasis requiring ERCP intervention by gastroenterology. By exam she also appears to have some inflammatory change with her gallbladder. I have discussed with her the relevant anatomy and pathophysiology?including hand drawings to illustrate my points. I have shared with her the therapeutic objectives included immediate application of IV antibiotics followed by biliary decompression, and ultimately cholecystectomy. Patient is yet to be evaluated by gastroenterology, but I have shared with her that we may try to utilize the same anesthetic for her procedures as a means of expediting her care and minimizing her medical risk. I also shared with her the details of her cholecystectomy procedure which I plan to proceed with a laparoscopic approach. Given her concurrent anticoagulation and her nontoxic state, I would like to wait until the effects of the Xarelto are at their minimum which would put the start of any intervention as beginning tomorrow afternoon at the earliest. We will seek operative time through the operating room and look to collaborate with gastroenterology. For the interim recommend empiric IV antibiotic therapy, n.p.o. past midnight, consents for laparoscopic cholecystectomy with intraoperative cholangiogram, and AM CBC with CMP. Reza Ryan MD General Surgery Endocrine Surgery Pager: [facility] [address] [place] [address], [facility], [address] [place] [id number] Office: [phone] HPI Consult Data Date of Consult: 03/13/23 HPI Narrative Reason for Consultation: Choledocholithiasis HPI Narrative: MARY JO ROMO, is a 72 F who presents to [facility] as a direct transfer from [facility] where she initially presented for complaints of right upper quadrant discomfort that began on 03/10/2023. She shares that she was eating a snack of Chex mix while watching television when she suddenly developed a full feeling and a soreness that was worse with deep breathing. She confirms that the symptoms were associated with some nausea but no vomiting as well. After a long workup she was diagnosed with choledocholithiasis and transferred to our facility for ERCP by gastroenterology. Patient has a past medical history of GERD and states that this has been worse lately. She reports some associated belching and was initially concerned her symptoms were an exacerbation of this condition but when they intensified she decided to seek further evaluation. Beyond GERD patient has a diagnosis of atrial fibrillation and is anticoagulated with Xarelto (her last dose was p.m. of 03/12/2023), hypertension, reasonably well?controlled diabetes (last A1c 7.3), and obstructive sleep apnea on CPAP. Has almost an after thought Mrs. Romo shares that she had sepsis approximately 5 years ago but no cause was ever concluded. Patient's past surgical history includes number of back surgeries, eye surgery, decompression of the facial nerve, and open appendectomy in the early . [facility] Medical History (Updated 03/13/23 @ 16:[address] Reza Ryan MD) Cholecystitis, acute with cholelithiasis Home Medications carvedilol 25 mg tablet 25 mg PO BID BP 03/19/20 [History Last Taken 03/12/23 21:00] diltiazem HCl 120 mg capsule,extended release 24 hr 240 mg PO DAILY BP 03/19/20 [History Last Taken 03/12/23 08:00] dulaglutide 1.5 mg/0.5 mL subcutaneous pen injector 1.5 mg SQ QWEEK diabetes 03/19/20 [History Last Taken 03/12/23 10:00] lansoprazole 15 mg capsule,delayed release 15 mg PO DAILY GERD 03/19/20 [History Last Taken 03/12/23 12:14] losartan 100 mg tablet 100 mg PO DAILY BP 03/19/20 [History Last Taken 03/12/23 08:00] pravastatin 20 mg tablet 10 mg PO QHS CHOLESTEROL 03/19/20 [History Last Taken 03/12/23 22:00] rivaroxaban 20 mg tablet (Xarelto) 20 mg PO Q24H PRN afib 03/13/23 [History Last Taken 03/12/23 17:00] Allergy/AdvReac Type Severity Reaction Status Date / Time sulfamethoxazole Allergy Rash Verified 12/17/21 10:21 [From Bactrim] trimethoprim [From Bactrim] Allergy Rash Verified 12/17/21 10:21 codeine AdvReac Nausea/Vom/ Verified 12/17/21 10:21 Diarrhea lisinopril AdvReac cough Verified 12/17/21 10:21 Social History Smoking Status: Never smoker ROS Gastrointestinal Gastrointestinal: Reports abdominal pain and nausea; Denies change in bowel habits, diarrhea or vomiting Physical Exam Const alert, oriented x3, no apparent distress and healthy appearing General Appearance: cooperative and well developed Resp normal respiratory effort GI GI Narrative: Nondistended, soft, well-healed transverse incision of the right lower quadrant consistent with prior appendectomy, no visible herniation, tender to palpation in the right upper quadrant but technically negative Perez sign Lab / Micro Data 03/13/23 12:03 03/13/23 12:03 Labs: Laboratory Results - last 24 hr 03/13/23 12:03: WBC 8.6, RBC 5.20, Hgb 14.6, Hct 44.4, MCV 85.4, MCH 28.1, MCHC 32.9, RDW Std Deviation 40.2, RDW Coeff of Antwon 12.9, Plt Count 226, MPV 10.9, Immature Gran % (Auto) 0.400, Neut % (Auto) 69.1, Lymph % (Auto) 17.3 L, [place] % (Auto) 11.1 H, Eos % (Auto) 1.5, Baso % (Auto) 0.6, Absolute Neuts (auto) 5.9, Absolute Lymphs (auto) 1.48, Nucleated RBC % 0, Sodium 143, Potassium 3.6, Chloride 112 H, Carbon Dioxide 24.0, Anion Gap 7, BUN 22 H, Creatinine 1.72 H, Estim Creat Clear Calc 25.15, Est GFR (MDRD) Af Amer 37 L, Est GFR (MDRD) Non-Af 31 L, BUN/Creatinine Ratio 12.8, Glucose 166 H, Calcium 9.4, Magnesium 2.3, Total Bilirubin 1.50 H, Direct Bilirubin 0.80 H, AST 84 H, ALT 223 H, Alkaline Phosphatase 145 H, Total Protein 7.5, Albumin 3.6, Globulin 3.9 Charges/Coding Visit Charges Inpatient E&M: 39147 Init Hosp L2
[2023-03-13 16:37] LABS: Bedside Glucose 119 mg/dL (74-106)
[2023-03-13 20:40] VITALS: BP 132/74; PULSE 88; RESP 18; TEMP 37; O2SAT 98
[2023-03-13] MEDS: Piperacil/Tazobactam 3.375 GM in 0.9% Normal Saline (50mL MB+) 50 ML IV (20:41)
[2023-03-13] MEDS: HYDROmorphone 1 MG/ML Syringe IV (20:41)
[2023-03-13] MEDS: Pravastatin 20 MG Tablet 10 MG PO (20:43)
[2023-03-14] VITALS (17 sets, daily range): BP systolic 120–150; BP diastolic 61–97; PULSE 73–110; RESP 16–18; TEMP 36.3–37.2; O2SAT 88–97; BMI 28.1
[2023-03-14 03:03] LABS: Bedside Glucose 160 mg/dL (74-106)
[2023-03-14] MEDS: Piperacil/Tazobactam 3.375 GM in 0.9% Normal Saline (50mL MB+) 50 ML IV ×3 (05:15→22:40)
[2023-03-14 06:12] LABS: Absolute Lymphocyte Count 1.21 X10^3/uL (0.83-4.51); Absolute Neutrophil Count 4.9 X10^3/uL (2.0-7.7); Basophil# 0.05 X10^3/uL; Basophil% 0.7 % (0-1); Eosinophil# 0.05 X10^3/uL; Eosinophils% 0.7 % (0-5); Hematocrit 41.4 % (37-47); Hemoglobin 13.5 g/dL (12.0-15.0); Lymphocyte # 1.21 X10^3/ul (0.83-4.51); Mean Corp Hgb Conc 32.6 g/dL (32-36); Mean Corpuscular Hgb 28.5 pg (27.0-32.0); Mean Corpuscular Volume 87.3 fL (81-99); Mean Platelet Vol. 10.7 fl (6.2-12.0); Monocyte# 0.53 X10^3/uL; Monocyte% 7.9 % (0-10); NRBC Flagged by Analyzer 0 % (0-5); Neutrophil # 4.86 X10^3/uL (2.7-7.7); Neutrophil % 72.3 % (47-70); Platelet Count 211 K/mm3 (150-450); RBC Distribution Width CV 12.9 % (11.6-14.6); RBC Distribution Width SD 40.6 fl (35.1-43.9); Red Blood Count 4.74 M/mm3 (4.2-5.4); White Blood Count 6.7 K/mm3 (4.4-11.0)
[2023-03-14 06:47] LABS: ALB/GLOB Ratio 0.8 RATIO (0.9-2.4); AST(SGOT) 97 U/L (15-37); Alanine Aminotransfer ALT/SGPT 206 U/L (13-56); Albumin, Serum 3.1 g/dL (3.2-5.0); Alkaline Phosphatase 142 U/L (45-117); Anion Gap 9 (5-15); BUN 22 mg/dL (7-18); BUN/Creat Ratio 16.2 RATIO (10-20); Calcium,Total 8.5 mg/dL (8.5-10.1); Chloride 110 mmol/L (98-107); Creatinine, Serum 1.36 mg/dL (0.55-1.02); EST Glomerular Filtration Rate 41 mL/min (>60); Est Glom Filt Rate - Afr Amer 49 mL/min (>60); Estimated Creatinine Clearance 31.81 ml/min; Globulin 3.7 g/dL (2.2-4.2); Glucose 151 mg/dL (74-106); Magnesium 2.1 mg/dL (1.6-2.6); Potassium 4.2 mmol/L (3.5-5.1); Protein, Total 6.8 g/dL (6.4-8.2); Sodium Level 140 mmol/L (136-145)
[2023-03-14 06:49] LABS: Phosphorus 4.8 mg/dL (2.5-4.9)
[2023-03-14] MEDS: KCL 20MEQ in 0.45%NS 20 MEQ/1,000 ML IV.SOLN. 125 MEQ IV (07:46)
--- NOTE | 2023-03-14 08:04 | PN.HOSP_ITS ---
Reason for Visit Reason for Visit: Diagnoses Calculus of gallbladder with acute cholecystitis without obstruction (03/13/23) Calculus of bile duct with acute cholecystitis without obstruction (03/13/23) Subjective Subjective Patient is a 72-year-old lady transferred from an outside hospital with right upper quadrant abdominal pain with a diagnosis of gallstone with acute cholecystitis. Patient admitted to regular nursing floor with consultation placed to both general surgery as well as GI Objective Data Objective Data Vital Signs: Vital Signs Temp Pulse Resp BP Pulse Ox O2 Del Method 98.6 F 95 18 132/75 H 94 Room Air 03/14/23 07:51 03/14/23 07:51 03/14/23 07:51 03/14/23 07:51 03/14/23 07:51 03/14/23 07:51 Oxygen Delivery Method Room Air Weight: 74.389 kg Body Mass Index (BMI) 28.1 Intake & Output: Intake and Output for Last 24 Hours 03/12/23 03/13/23 03/14/23 23:59 23:59 23:59 Intake Total 1000 / 1000 1050 / 1050 Balance 1000 / 1000 1050 / 1050 Lab / Micro Data 03/14/23 05:55 03/14/23 05:55 Labs: Laboratory Results - last 24 hr 03/13/23 12:03: WBC 8.6, RBC 5.20, Hgb 14.6, Hct 44.4, MCV 85.4, MCH 28.1, MCHC 32.9, RDW Std Deviation 40.2, RDW Coeff of Antwon 12.9, Plt Count 226, MPV 10.9, Immature Gran % (Auto) 0.400, Neut % (Auto) 69.1, Lymph % (Auto) 17.3 L, [place] % (Auto) 11.1 H, Eos % (Auto) 1.5, Baso % (Auto) 0.6, Absolute Neuts (auto) 5.9, Absolute Lymphs (auto) 1.48, Nucleated RBC % 0, Sodium 143, Potassium 3.6, Chloride 112 H, Carbon Dioxide 24.0, Anion Gap 7, BUN 22 H, Creatinine 1.72 H, Estim Creat Clear Calc 25.15, Est GFR (MDRD) Af Amer 37 L, Est GFR (MDRD) Non-Af 31 L, BUN/Creatinine Ratio 12.8, Glucose 166 H, Calcium 9.4, Magnesium 2.3, Total Bilirubin 1.50 H, Direct Bilirubin 0.80 H, AST 84 H, ALT 223 H, Alkaline Phosphatase 145 H, Total Protein 7.5, Albumin 3.6, Globulin 3.9 03/13/23 16:20: POC Glucose 119 H 03/14/23 02:39: POC Glucose 160 H 03/14/23 05:55: WBC 6.7, RBC 4.74, Hgb 13.5, Hct 41.4, MCV 87.3, MCH 28.5, MCHC 32.6, RDW Std Deviation 40.6, RDW Coeff of Antwon 12.9, Plt Count 211, MPV 10.7, Immature Gran % (Auto) 0.400, Neut % (Auto) 72.3 H, Lymph % (Auto) 18.0 L, [place] % (Auto) 7.9, Eos % (Auto) 0.7, Baso % (Auto) 0.7, Absolute Neuts (auto) 4.9, Absolute Lymphs (auto) 1.21, Nucleated RBC % 0, Sodium 140, Potassium 4.2, Chloride 110 H, Carbon Dioxide 21.0, Anion Gap 9, BUN 22 H, Creatinine 1.36 H, Estim Creat Clear Calc 31.81, Est GFR (MDRD) Af Amer 49 L, Est GFR (MDRD) Non-Af 41 L, BUN/Creatinine Ratio 16.2, Glucose 151 H, Calcium 8.5, Phosphorus 4.8, Magnesium 2.1, Total Bilirubin 2.00 H, AST 97 H, ALT 206 H, Alkaline Phosphatase 142 H, Total Protein 6.8, Albumin 3.1 L, Globulin 3.7, Albumin/Globulin Ratio 0.8 L Physical Exam Narrative GENERAL: cooperative HEENT: Atraumatic; normocephalic EYES; Anicteric, Normal Conjunctiva NECK; supple, normal thyroid, RESPIRATORY: Diminished to auscultation CARDIOVASCULAR: Regular S1 S2, GI: soft, normoactive bowel sounds, : No Renal angle tenderness; EXTREMITIES: No edema, no clubbing, MUSCULOSKELETAL: no muscle wasting NEURO: Awake; no lateralizing signs. SKIN: No Rash PSYCH; Flat affect Assessment & Plan Assessment/Plan (1) Cholecystitis, acute with cholelithiasis: PLAN: Plan Patient is a 72-year-old lady transferred from an outside hospital with right upper quadrant abdominal pain with a diagnosis of gallstone with acute ch olecystitis 1. Acute cholecystitis ? Secondary to cholelithiasis. Admitted to regular nursing floor currently managed with bowel rest pain medication antinausea medication consultation placed to general surgery Case discussed with Dr. Ryan ? 03/14/2023 patient scheduled to undergo laparoscopic cholecystectomy by Dr. Chaudhari 2. Acute cholelithiasis ? Patient presented with acute cholecystitis ultrasound demonstrated dilated CBD. Consult has been placed with Dr. Shelley with gastroenterology for possible ERCP ? 03/14/2023 ERCP scheduled for today by Dr. Shelley 3. Hypertension - Blood pressure controlled, home medications continued with dose adjustment as needed 4. Diabetes mellitus type II -patient's oral hypoglycemics held. Placed on long acting insulin, Accu-Cheks a.c. and at bedtime and covered with sliding scale insulin 5. Paroxysmal A-fib ? Rate controlled on systemic anticoagulation with rivaroxaban 6. Obstructive sleep apnea ? Patient is on CPAP at night 7. Dyslipidemia -Patient is on statin therapy, continued at home dose 8. DVT prophylaxis ? Patient is on rivaroxaban Time spent in the patient's overall evaluation,decision-making process, review of diagnostic data, adjustment of management, discussion with other providers, nursing nursing and ancillary staff involved in patient's care documentation, 50 minutes Charges/Coding Visit Charges Inpatient E&M: 93904 [facility] H[facility] L3
[2023-03-14] MEDS: dilTIAZem CD 240 MG Capsule PO (08:12)
[2023-03-14] MEDS: Carvedilol 25 MG Tablet PO ×2 (08:12→20:22)
[2023-03-14] MEDS: Losartan Potassium 100 MG Tablet PO (08:13)
[2023-03-14] MEDS: Pantoprazole Sodium 40 MG Tablet PO (08:13)
[2023-03-14 08:22] LABS: Bacteria 0 SEEN /hpf (None Seen); Mucous, Urine 0 SEEN /hpf (<or=2+); Red Blood Cells-Urine 0 SEEN /hpf (0-5); White Blood Cells 0 SEEN /hpf (0-5)
[2023-03-14 08:33] LABS: Bedside Glucose 134 mg/dL (74-106)
[2023-03-14 08:49] LABS: Color, Urine Yellow (Yellow); Glucose, Dipstick Normal (Normal); Ketone-Dipstick 50 mg/dl (Negative); Leukocyte Esterase-Dipstick Negative /ul (Negative); Nitrite-Dipstick Negative (Negative); Occult Blood-Urine Negative /ul (Negative); Protein-Dipstick 15 mg/dl (Negative); Urine Bilirubin Dipstick Negative (Negative); Urine Clarity Sl. Cloudy (Clear); Urine Urobilinogen 1 mg/dl (Normal)
[2023-03-14 09:11] LABS: Squamous Epithelial Cells - UA 0-5 SEEN /hpf (5-10)
[2023-03-14 10:23] LABS: Hemoglobin A1c 7.2 % (3.8-5.6)
[2023-03-14] MEDS: 0.9% Saline Lock 10 ML Syringe IV (11:25)
--- NOTE | 2023-03-14 11:45 | CASEMGMT ---
Addendum entered by Awilda Wilde 03/14/23 16:01: Pt remains off of the floor at this time. Original Note: Pt is off of the floor at this time. CATY CM assessment to be completed at a later time.
[2023-03-14] MEDS: Lactated Ringers 1,000 ML 15 ML IV ×2 (11:56→17:13)
--- NOTE | 2023-03-14 12:11 | PN.SURG_ITS ---
Subjective Subjective Patient seen and examined during AM rounds. She reports that she had a bit of a difficult overnight course as she had return of her pain. She states that she is now feeling better this morning. She denies any questions related to the planned procedures for later today. Objective Data Objective Data Vital Signs: Vital Signs Temp Pulse Resp BP Pulse Ox O2 Del Method 98.6 F 87 18 127/97 H 97 Room Air 03/14/23 11:16 03/14/23 11:16 03/14/23 11:16 03/14/23 11:16 03/14/23 11:16 03/14/23 11:16 Oxygen Delivery Method Room Air Weight: 164 lb Body Mass Index (BMI) 28.1 Intake & Output: Intake and Output for Last 24 Hours 03/12/23 03/13/23 03/14/23 23:59 23:59 23:59 Intake Total 1000 / 1000 1100 / 1100 Balance 1000 / 1000 1100 / 1100 Lab / Micro Data 03/14/23 05:55 03/14/23 05:55 Labs: Laboratory Results - last 24 hr 03/13/23 12:03: WBC 8.6, RBC 5.20, Hgb 14.6, Hct 44.4, MCV 85.4, MCH 28.1, MCHC 32.9, RDW Std Deviation 40.2, RDW Coeff of Antwon 12.9, Plt Count 226, MPV 10.9, Immature Gran % (Auto) 0.400, Neut % (Auto) 69.1, Lymph % (Auto) 17.3 L, [place] % (Auto) 11.1 H, Eos % (Auto) 1.5, Baso % (Auto) 0.6, Absolute Neuts (auto) 5.9, Absolute Lymphs (auto) 1.48, Nucleated RBC % 0, Sodium 143, Potassium 3.6, Chloride 112 H, Carbon Dioxide 24.0, Anion Gap 7, BUN 22 H, Creatinine 1.72 H, Estim Creat Clear Calc 25.15, Est GFR (MDRD) Af Amer 37 L, Est GFR (MDRD) Non-Af 31 L, BUN/Creatinine Ratio 12.8, Glucose 166 H, Calcium 9.4, Magnesium 2.3, Total Bilirubin 1.50 H, Direct Bilirubin 0.80 H, AST 84 H, ALT 223 H, Alkaline Phosphatase 145 H, Total Protein 7.5, Albumin 3.6, Globulin 3.9 03/13/23 16:20: POC Glucose 119 H 03/14/23 02:39: POC Glucose 160 H 03/14/23 05:55: WBC 6.7, RBC 4.74, Hgb 13.5, Hct 41.4, MCV 87.3, MCH 28.5, MCHC 32.6, RDW Std Deviation 40.6, RDW Coeff of Antwon 12.9, Plt Count 211, MPV 10.7, Immature Gran % (Auto) 0.400, Neut % (Auto) 72.3 H, Lymph % (Auto) 18.0 L, [place] % (Auto) 7.9, Eos % (Auto) 0.7, Baso % (Auto) 0.7, Absolute Neuts (auto) 4.9, Absolute Lymphs (auto) 1.21, Nucleated RBC % 0, Sodium 140, Potassium 4.2, Chloride 110 H, Carbon Dioxide 21.0, Anion Gap 9, BUN 22 H, Creatinine 1.36 H, Estim Creat Clear Calc 31.81, Est GFR (MDRD) Af Amer 49 L, Est GFR (MDRD) Non-Af 41 L, BUN/Creatinine Ratio 16.2, Glucose 151 H, Hemoglobin A1c 7.2 H, Calcium 8.5, Phosphorus 4.8, Magnesium 2.1, Total Bilirubin 2.00 H, AST 97 H, ALT 206 H, Alkaline Phosphatase 142 H, Total Protein 6.8, Albumin 3.1 L, Globulin 3.7, Albumin/Globulin Ratio 0.8 L 03/14/23 07:55: Urine Color Yellow, Urine Clarity Sl. Cloudy, Urine pH 5.0, Ur Specific [place] 1.020, Urine Protein 15 H, Urine Glucose (UA) Normal, Urine Ketones 50 H, Urine Occult Blood Negative, Urine Nitrite Negative, Urine Bili vanegas Negative, Urine Urobilinogen 1 H, Ur Leukocyte Esterase Negative, Urine RBC 0 SEEN, Urine WBC 0 SEEN, Ur Squamous Epith Cells 0-5 SEEN, Urine Bacteria 0 SEEN, Urine Mucus 0 SEEN 03/14/23 08:10: POC Glucose 134 H Physical Exam Const oriented x3 and no apparent distress Resp normal respiratory effort GI GI Narrative: Soft, and nondistended. Tender to palpation in the right upper quadrant with negative Perez sign Assessment & Plan Assessment/Plan (1) Choledocholithiasis with acute cholecystitis: PLAN: Patient is a 72-year-old female with past medical and past surgical history noted as per HPI above who presents as a direct transfer due to diagnosis of choledocholithiasis requiring ERCP intervention by gastroenterology. By exam she also appears to have some inflammatory change with her gallbladder. She is pending ERCP and laparoscopic cholecystectomy later today. Her pain description remains consistent with this diagnosis and her total bilirubin is further elevated today?suggesting that her stone obstruction has not resolved spontaneously. She confirms that consents were obtained for laparoscopic cholecystectomy with intraoperative cholangiography. Will plan to proceed to the operating room at approximately 1300. Please keep patient n.p.o. until that time with continuous IV antibiotic therapy support. Reza Ryan MD General Surgery Endocrine Surgery Pager: [facility] [address] [place] [address], [address] [place] [address] Office: [phone] Charges/Coding Visit Charges Inpatient E&M: 71388 Subs Hosp L2
[2023-03-14 12:17] LABS: Bedside Glucose 118 mg/dL (74-106)
--- NOTE | 2023-03-14 12:20 | RAD_ITS ---
EXAM: FL FLUOROSCOPY < 1 HOUR CLINICAL INDICATION: ERCP TECHNIQUE: 8 fluoroscopic images were obtained. Fluoroscopic guidance was provided by a physician. No radiologist was present. RADIATION DOSE: 90 seconds, 29.75 mGy-cm COMPARISON: None FINDINGS: The common bile duct is cannulated and appears to be somewhat prominent. Filling defect is seen in the distal common bile duct could represent air bubbles or retained stone. The last image demonstrates probable common bile duct stent not clearly visualized. RAD/ERCP Biliary/Pancreas IMPRESSION: ERCP as described above. Electronically Signed: Davidson Ingram MD at 14:26 EST ,
--- NOTE | 2023-03-14 13:20 | GALL_PTH ---
PATIENT: MARY JO ROTH LOC: MS3 U#:[id number] AGE/SX: 72/F ROOM: MS319 RE03/13/[address]: Dr. Duncan Daniel MD : 1950 BED: 1 DIS: 03/15/2023 SPEC #: [id number] RECD: 03/15/23 07:27 STATUS: DARCI REElida #: [id number] MAHOGANY: 03/14/23 13:[address]: Reza Ryan DEPT: SURGICAL PATHOLOGY RECD BY: Risa Patino ENTERED: 03/15/23 07:27 SP TYPE: GALLBLADDE OTHR DR: MD Dr. Serge Ballesteros MD Dr. Michael Bortz, MD Tissues: Gallbladder, NOS Procedures: Surgery Specimen Level III Comments: @ Ordering doctor for SUIII edited from to @ by YUAN at 03/15/23 153 @ Submitting doctor edited from to @ by RGOOD at 03/15/23 1530 HEADER OPERATION: Laparoscopic cholecystectomy with IOC PRE-OP DIAGNOSIS: Choledocholithiasis TISSUE SUBMITTED: Gallbladder MICROSCOPIC DIAGNOSIS Gallbladder, cholecystectomy: Acute and chronic cholecystitis. See comment. SJ:arcelia 03/16/2023 COMMENT The gallbladder contains slush material. No stones are identified in the container or in the gallbladder. MICROSCOPIC DESCRIPTION Slides are reviewed. GROSS DESCRIPTION Received is one container labeled with the patient's name and designated gallbladder. The specimen consists of a gallbladder measuring 13.0 cm in length and up to 4.5 cm in diameter. The external surface is pink-pan, smooth and glistening for the most part. Focally it is granular, hemorrhagic and contains cautery artifact. The gallbladder contains green-yellow mucoid bile and sludge material. No stones are identified in the container or in the gallbladder. The mucosa is bile-stained and without any mass lesions. The gallbladder wall measures up to 0.3 cm in thickness. Strap Folding Machine Operator sections from the gallbladder and the cystic duct are submitted in one cassette. / SJ:arcelia 03/15/2023 TC:2 CPT: 36602
--- NOTE | 2023-03-14 14:24 | RAD_ITS ---
STUDY: INTRAOPERATIVE CHOLANGIOGRAM. REASON FOR EXAM: Female, 72 years old. LAP JLUIS WITH IOC FLUOROSCOPY TIME (if supplied): ( 24 seconds ) minutes/seconds. 8.77 mCi TECHNIQUE: An intraoperative cavagram was performed by the surgeon. Intraoperative fluoroscopic services provided. COMPARISON: None. FINDINGS: Dilated common bile duct. A stent is seen within the common bile duct. There is free flow of contrast into the duodenum. RAD/Cholangiogram/ O R,Initial IMPRESSION: Dilated common bile duct with a stent within the common bile duct. Free flow of contrast into the duodenum. Electronically Signed: Aayush Mazariegos MD at 15:03 EST ,
--- NOTE | 2023-03-14 14:24 | OP.ERCP_ITS ---
Patient Name: Roseanna Romo Procedure Date: 03/14/2023 1:04 PM Date of : 1950 Age: 72 Procedure: ERCP Indications: Bile duct stone(s), Jaundice, Elevated liver enzymes Providers: Nick Shelley DO Referring MD: Duncan Daniel Medicines: Monitored Anesthesia Care Patient Profile: This is a 72 year old female. Refer to note in patient chart for documentation of history and physical. Patient has symptoms of acute right upper quadrant abdominal pain and acute jaundice. This patient has no history of previous ERCP. This patient has no history of surgical alteration of the upper digestive tract anatomy. Complications: No immediate complications. Procedure: Pre-Anesthesia Assessment: - Prior to the procedure, a History and Physical was performed, and patient medications and allergies were reviewed. The patient is competent. The risks and benefits of the procedure and the sedation options and risks were discussed with the patient. All questions were answered and informed consent was obtained. Patient identification and proposed procedure were verified by the physician in the pre-procedure area. Mental Status Examination: normal. Airway Examination: normal oropharyngeal airway and neck mobility. Respiratory Examination: clear to auscultation. CV Examination: normal. Prophylactic Antibiotics: The patient does not require prophylactic antibiotics. Prior Anticoagulants: The patient has taken no anticoagulant or antiplatelet agents. ASA Grade Assessment: III - A patient with severe systemic disease. After reviewing the risks and benefits, the patient was deemed in satisfactory condition to undergo the procedure. The anesthesia plan was to use monitored anesthesia care (MAC). Immediately prior to administration of medications, the patient was re-assessed for adequacy to receive sedatives. The heart rate, respiratory rate, oxygen saturations, blood pressure, adequacy of pulmonary ventilation, and response to care were monitored throughout the procedure. The physical status of the patient was re-assessed after the procedure. After obtaining informed consent, the scope was passed under direct vision. Throughout the procedure, the patient's blood pressure, pulse, and oxygen saturations were monitored continuously. The Duodenoscope was introduced through the mouth, and advanced to the duodenum and used to inject contrast into the bile duct and ventral pancreatic duct. The ERCP was accomplished without difficulty. The patient tolerated the procedure well. Scope In: 1:21:12 PM Scope Out: 1:34:16 PM Total Procedure Duration Time 0 hours 13 minutes 4 seconds Findings: The electric sealing machine operator film was normal. The esophagus was successfully intubated under direct vision. The scope was advanced to a normal major papilla in the descending duodenum without detailed examination of the pharynx, larynx and associated structures, and upper GI tract. The upper GI tract was grossly normal. The bile duct was deeply cannulated. Contrast was injected. I personally interpreted the bile duct and pancreatic duct images. There was brisk flow of contrast through the ducts. Image quality was excellent. Contrast extended to the entire biliary tree. Opacification of the entire opacified area was successful. The maximum diameter of the ducts was 8 mm. The lower third of the main bile duct contained three stones, the largest of which was 6 mm in diameter. The main bile duct was diffusely dilated, with a stone causing an obstruction. The largest diameter was 11mm. A straight Roadrunner wire was passed into the biliary tree. A 5 mm biliary sphincterotomy was made with a braided traction (standard) sphincterotome using ERBE electrocautery. The sphincterotomy oozed blood. The biliary tree was swept with a 15 mm balloon starting at the bifurcation. Sludge was swept from the duct. All stones were removed. Dilation of common bile duct with a 6-7-8 mm balloon dilator was successful. One 10 Fr by 5 cm temporary stent was placed 5 cm into the common bile duct. Bile flowed through the stent. The stent was in good position. Impression: - The entire main bile duct was dilated, with a stone causing an obstruction. - Choledocholithiasis was found. Complete removal was accomplished by biliary sphincterotomy and balloon extraction. - A biliary sphincterotomy was performed. - The biliary tree was swept. - Common bile duct was successfully dilated. - One temporary stent was placed into the common bile duct. Procedure Code(s): --- Professional --- 29455, Endoscopic retrograde cholangiopancreatography (ERCP); with placement of endoscopic stent into biliary or pancreatic duct, including pre- and post-dilation and guide wire passage, when performed, including sphincterotomy, when performed, each stent [id number], Endoscopic retrograde cholangiopancreatography (ERCP); with removal of calculi/debris from biliary/pancreatic duct(s) 38010, 26, Combined endoscopic catheterization of the biliary and pancreatic ductal systems, radiological supervision and interpretation CPT copyright 2021 [employer]. All rights reserved. The codes documented in this report are preliminary and upon wood box maker review may be revised to meet current compliance requirements. Nick Shelley DO 03/14/2023 2:23:33 PM This report has been signed electronically. Number of Addenda: 0 Note Initiated On: 03/14/2023 1:04 PM
--- NOTE | 2023-03-14 14:24 | OP.CCLET_ITS ---
03/14/2023 Serge Black [address] [place] [address] [place] [address] Re : ERCP procedure for Roseanna Romo Dear Dr. Black This procedure was performed on Tuesday, March 14, 2023. My impressions and recommendations are as follows: Impressions : - The entire main bile duct was dilated, with a stone causing an obstruction. - Choledocholithiasis was found. Complete removal was accomplished by biliary sphincterotomy and balloon extraction. - A biliary sphincterotomy was performed. - The biliary tree was swept. - Common bile duct was successfully dilated. - One temporary stent was placed into the common bile duct. Recommendations : My findings are described in the full procedure note, which is enclosed. If I can be of further assistance, please feel free to contact me at . Sincerely, Nick Shelley, 03/14/2023 2:23:33 PM This report has been signed electronically.
--- NOTE | 2023-03-14 15:20 | OP.PCM_ITS ---
Problems Associated Problem List Diagnoses (1) Choledocholithiasis with acute cholecystitis: Report of Operation Date of Procedure: 03/14/23 Pre-Operative Diagnosis: Choledocholithiasis with cholecystitis Post-Operative Diagnosis: Same Surgery/Procedure Performed:: Laparoscopic cholecystectomy with intraoperative cholangiogram Description of Surgical Findings:: ? Moderately severe inflammation with clear edema planes ? Cholangiogram showing normal biliary anatomy with dilation of the common hepatic and common bile ducts but free flow of bile through a common bile duct stent as well as retrograde filling of the right and left proper hepatic ducts ? 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 Moderate spillage of tainted bile into the peritoneum after inadvertent displacement of one of our laparoscopic ligature clips Surgeon: Reza Ryan drafter: Surekha Johnson Type of Anesthesia: General/Supplemental Anesthesiologist: Rm Navarro Specimen's removed: Gallbladder Estimated Blood Loss (mL): 25 Description of Procedure: After proper identification in the preoperative holding area and consents were obtained patient was taken to the operating room by gastroenterology for ERCP with stone extraction. Once the ERCP portion of the procedure was concluded patient was returned to a supine position. Patient's abdomen was prepped and draped in usual sterile fashion. A formal timeout was conducted to confirm both patient and the procedure. Procedure was begun with a supraumbilical incision which was extended deeply down to the level of the fascia. The fascia was elevated and incised, as well as the peritoneum. A finger sweep was performed to ensure there were no underlying adhesions and a 12 mm balloon trocar was inserted. Pneumoperitoneum was established at 15 mmHg. 3 additional trocars were placed in the epigastrium and in the right upper quadrant (3 x 5 mm). Inspection of the peritoneum revealed no inadvertent injury to the viscera below. The gallbladder was visualized with moderate degree of inflammation. The gallbladder fundus was then grasped and elevated cephalad. Then, using careful dissection the peritoneum was opened and the structures of the hepatocystic triangle were delineated. Once the critical view of safety was obtained, the cystic duct was singly clipped and partially divided with a ductotomy. The proximal duct was milked of any debris until there was backflow of bile. A cholangiocatheter was fed into the proximal segment of the cystic duct and clipped into place. Using an [place]vo Locust clamp, a cholangiocatheter was fed into the proximal segment of the cystic duct and clamped into place. Under fluoroscopy a cholangiogram was then obtained showing a standard length cystic duct flowing into a common bile duct with unobstructed antegrade flow of contrast into the duodenum via a common bile duct stent. The common hepatic and common bile ducts were both dilated. There was also retrograde flow through the common hepatic duct into the right and left hepatic ducts. Satisfied with this result, the cholangiocatheter was withdrawn and the proximal cystic duct was sealed with clips and the cystic duct was completely transected. The cystic artery appeared to have a number of branches which were ligated with double clipping and divided against the gallbladder to be sure that no aberrant right hepatic was missed. I then confirmed the main trunk of the anterior cystic artery adjacent to the gallbladder fundus, circumferentially dissected a round it, and ligated this triply with clips and sharply divided it. Despite this care there was a small arterial vessel that was still bleeding against the main trunk more proximally and I attempted to clip this superficially. This resulted in partial ligation but persistent bleeding initially occurred. While I requested a second clip single stroke preformer, however, the vessel spontaneously clotted and despite checking multiple times thereafter was no longer seen bleeding. At the about the same time I began trying to elevate the gallbladder from the cystic plate and placing the gallbladder on traction inadvertently displaced the clip across the distal gallbladder (in the neck region) and this resulted in some local spillage of bile before the opening was resecured with additional clips. This bile was promptly suctioned free of the peritoneum using our suction regional training manager and the whole vicinity was copiously irrigated with sterile saline. The gallbladder was then removed from the gallbladder fossa with the use of electrocautery. Selective electrocautery was used to obtain hemostasis in the gallbladder fossa. The gallbladder was placed in an Endo Catch bag and removed from the peritoneum. Morison's pouch was irrigated and the effluent was suctioned free of the peritoneum. Hemostasis was again confirmed. Pneumoperitoneum was evacuated and the fascia of the 12 mm port site was closed with #1Vicryl in a [id number] fashion. A total of 30 mL of anesthetic was injected at the port sites for postoperative pain control. The skin of each port site was then closed in subcuticular fashion using 4-0 Monocryl. Steri- Strips and bandages were applied as dressings. Patient tolerated the procedure well without any apparent complications. On emergence from their anesthetic the patient was taken to PACU for ongoing recovery. Complications Inadvertent spillage of bile that was suctioned free of the peritoneum otherwise no complications Admit VTE Documentation VTE Present on Admission: Yes VTE Mechan Device Prophylaxis: SCD's Procedures Digestive 40xxx-49xxx: [id number] Laparo cholecystectomy/graph
[2023-03-14] MEDS: Bupivacaine Mpf 0.5% 30 ML VIAL (15:21)
[2023-03-14 18:22] LABS: Bedside Glucose 197 mg/dL (74-106)
[2023-03-14] MEDS: HYDROmorphone 1 MG/ML Syringe IV ×2 (18:47→22:39)
[2023-03-14] MEDS: Acetaminophen 325 MG Tablet 650 MG PO (20:22)
[2023-03-14] MEDS: Ondansetron 4 MG/2 ML Vial IV (20:22)
[2023-03-14] MEDS: Pravastatin 20 MG Tablet 10 MG PO (20:22)
[2023-03-14] MEDS: Insulin Lispro 100 UNIT/ML INSULN.PEN SC (20:27)
[2023-03-14 22:49] LABS: Bedside Glucose 220 mg/dL (74-106)
[2023-03-15 02:48] VITALS: BP 120/77; PULSE 110; RESP 18; TEMP 36.4; O2SAT 92
[2023-03-15] MEDS: Piperacil/Tazobactam 3.375 GM in 0.9% Normal Saline (50mL MB+) 50 ML IV (05:26)
[2023-03-15] MEDS: Insulin Lispro 100 UNIT/ML INSULN.PEN SC ×2 (05:31→11:18)
[2023-03-15 06:58] LABS: Bedside Glucose 250 mg/dL (74-106)
[2023-03-15 07:34] LABS: Absolute Lymphocyte Count 0.79 X10^3/uL (0.83-4.51); Absolute Neutrophil Count 14.2 X10^3/uL (2.0-7.7); Basophil# 0.02 X10^3/uL; Basophil% 0.1 % (0-1); Hematocrit 40.1 % (37-47); Hemoglobin 12.9 g/dL (12.0-15.0); Lymphocyte # 0.79 X10^3/ul (0.83-4.51); Mean Corp Hgb Conc 32.2 g/dL (32-36); Mean Corpuscular Hgb 28.3 pg (27.0-32.0); Mean Corpuscular Volume 87.9 fL (81-99); Mean Platelet Vol. 11.2 fl (6.2-12.0); NRBC Flagged by Analyzer 0 % (0-5); Neutrophil # 14.21 X10^3/uL (2.7-7.7); Neutrophil % 89.3 % (47-70); Platelet Count 229 K/mm3 (150-450); RBC Distribution Width CV 13.1 % (11.6-14.6); Red Blood Count 4.56 M/mm3 (4.2-5.4); White Blood Count 15.9 K/mm3 (4.4-11.0)
[2023-03-15 08:13] VITALS: O2SAT 92
[2023-03-15 08:14] LABS: ALB/GLOB Ratio 0.9 RATIO (0.9-2.4); AST(SGOT) 40 U/L (15-37); Alanine Aminotransfer ALT/SGPT 143 U/L (13-56); Albumin, Serum 3.1 g/dL (3.2-5.0); Alkaline Phosphatase 112 U/L (45-117); Anion Gap 10 (5-15); BUN 29 mg/dL (7-18); BUN/Creat Ratio 19.3 RATIO (10-20); Calcium,Total 8.8 mg/dL (8.5-10.1); Chloride 105 mmol/L (98-107); EST Glomerular Filtration Rate 36 mL/min (>60); Est Glom Filt Rate - Afr Amer 44 mL/min (>60); Globulin 3.6 g/dL (2.2-4.2); Glucose 264 mg/dL (74-106); Potassium 3.7 mmol/L (3.5-5.1); Protein, Total 6.7 g/dL (6.4-8.2); Sodium Level 137 mmol/L (136-145)
--- NOTE | 2023-03-15 08:51 | PN.HOSP_ITS ---
Reason for Visit Reason for Visit: Diagnoses Calculus of gallbladder with acute cholecystitis without obstruction (03/13/23) Calculus of bile duct with acute cholecystitis without obstruction (03/13/23) Subjective Subjective Patient underwent ERCP which was later followed by laparoscopic cholecystectomy the day prior. Laparoscopic cholecystectomy with intraoperative cholangiogram Objective Data Objective Data Vital Signs: Vital Signs Temp Pulse Resp BP Pulse Ox O2 Del Method O2 Flow Rate 97.5 F L 110 H 18 120/77 92 Room Air 2 03/15/23 02:48 03/15/23 02:48 03/15/23 02:48 03/15/23 02:48 03/15/23 02:48 03/15/23 02:48 03/14/23 17:45 Oxygen Flow Rate (L/min) 2 Oxygen Delivery Method Room Air Weight: 74.389 kg Body Mass Index (BMI) 28.1 Intake & Output: Intake and Output for Last 24 Hours 03/13/23 03/14/23 03/15/23 23:59 23:59 23:59 Intake Total 1000 / 1000 2616.67 / 2616.67 330 / 330 Output Total 700 / 700 375 / 375 Balance 1000 / 1000 1916.67 / 1916.67 -45 / -45 Lab / Micro Data 03/15/23 06:55 03/15/23 06:55 Labs: Laboratory Results - last 24 hr 03/14/23 05:55: Hemoglobin A1c 7.2 H 03/14/23 07:55: Urine Color Yellow, Urine Clarity Sl. Cloudy, Urine pH 5.0, Ur Specific [place] 1.020, Urine Protein 15 H, Urine Glucose (UA) Normal, Urine K etones 50 H, Urine Occult Blood Negative, Urine Nitrite Negative, Urine Bilirubin Negative, Urine Urobilinogen 1 H, Ur Leukocyte Esterase Negative, Urine RBC 0 SEEN, Urine WBC 0 SEEN, Ur Squamous Epith Cells 0-5 SEEN, Urine Bacteria 0 SEEN, Urine Mucus 0 SEEN 03/14/23 11:15: POC Glucose 118 H 03/14/23 18:04: POC Glucose 197 H 03/14/23 20:17: POC Glucose 220 H 03/15/23 05:30: POC Glucose 250 H 03/15/23 06:55: WBC 15.9 H, RBC 4.56, Hgb 12.9, Hct 40.1, MCV 87.9, MCH 28.3, MCHC 32.2, RDW Std Deviation 42.0, RDW Coeff of Antwon 13.1, Plt Count 229, MPV 11.2, Immature Gran % (Auto) 0.600, Neut % (Auto) 89.3 H, Lymph % (Auto) 5.0 L, [place] % (Auto) 5.0, Eos % (Auto) 0.0, Baso % (Auto) 0.1, Absolute Neuts (auto) 14.2 H, Absolute Lymphs (auto) 0.79 L, Nucleated RBC % 0, Sodium 137, Potassium 3.7, Chloride 105, Carbon Dioxide 22.0, Anion Gap 10, BUN 29 H, Creatinine 1.50 H, Estim Creat Clear Calc 33.00, Est GFR (MDRD) Af Amer 44 L, Est GFR (MDRD) Non-Af 36 L, BUN/Creatinine Ratio 19.3, Glucose 264 H, Calcium 8.8, Total Bilirubin 1.00, AST 40 H, ALT 143 H, Alkaline Phosphatase 112, Total Protein 6.7, Albumin 3.1 L, Globulin 3.6, Albumin/Globulin Ratio 0.9 Radiography Diagnostic Testing: Radiology Impression Endo Retro Cholangiopancreatogram 03/14/23 12:20 IMPRESSION: ERCP as described above. Electronically Signed: Davidson Ingram MD at 14:26 EST , Cholangiogram 03/14/23 14:24 IMPRESSION: Dilated common bile duct with a stent within the common bile duct. Free flow of contrast into the duodenum. Electronically Signed: Aayush Mazariegos MD at 15:03 EST , Physical Exam Narrative GENERAL: cooperative HEENT: Atraumatic; normocephalic EYES; Anicteric, Normal Conjunctiva NECK; supple, normal thyroid, RESPIRATORY: Diminished to auscultation CARDIOVASCULAR: Regular S1 S2, GI: soft, normoactive bowel sounds, : No Renal angle tenderness; EXTREMITIES: No edema, no clubbing, MUSCULOSKELETAL: no muscle wasting NEURO: Awake; no lateralizing signs. SKIN: No Rash PSYCH; Flat affect Assessment & Plan Assessment/Plan (1) Cholecystitis, acute with cholelithiasis: PLAN: Plan Patient is a 72-year-old lady transferred from an outside hospital with right upper quadrant abdominal pain with a diagnosis of gallstone with acute cholecystitis 1. Acute cholecystitis ? Secondary to cholelithiasis. Admitted to regular nursing floor currently managed with bowel rest pain medication antinausea medication consultation placed to general surgery Case discussed with Dr. Ryan ? 03/14/2023 patient scheduled to undergo laparoscopic cholecystectomy by Dr. Ryan ? 03/25/2023; patient underwent laparoscopic cholecystectomy following her ERCP 2. Acute cholelithiasis ? Patient presented with acute cholecystitis ultrasound demonstrated dilated CBD. Consult has been placed with Dr. Shelley with gastroenterology for possible ERCP ? 03/14/2023 ERCP scheduled for today by Dr. Shelley ? 03/15/2023; ERCP findings and procedures as below - The entire main bile duct was dilated, with a stone causing an obstruction. - Choledocholithiasis was found. Complete removal was accomplished by biliary sphincterotomy and balloon extraction. - A biliary sphincterotomy was performed. - The biliary tree was swept. - Common bile duct was successfully dilated. - One temporary stent was placed into the common bile duct. 3. Hypertension - Blood pressure controlled, home medications continued with dose adjustment as needed 4. Diabetes mellitus type II -patient's oral hypoglycemics held. Placed on long acting insulin, Accu-Cheks a.c. and at bedtime and covered with sliding scale insulin 5. Paroxysmal A-fib ? Rate controlled on systemic anticoagulation with rivaroxaban 6. Obstructive sleep apnea ? Patient is on CPAP at night 7. Dyslipidemia -Patient is on statin therapy, continued at home dose 8. DVT prophylaxis ? Patient is on rivaroxaban Time spent in the patient's overall evaluation,decision-making process, review of diagnostic data, adjustment of management, discussion with other providers, nursing nursing and ancillary staff involved in patient's care documentation, 40 minutes Charges/Coding Visit Charges Inpatient E&M: 83832 Subs Hosp L2
--- NOTE | 2023-03-15 08:52 | PN.SURG_ITS ---
Subjective Subjective PAtient is a 72 y/o F i am following in conjunction with Dr. Ryan. Patient is s/p ERCP with stent placement and stone extraction by Dr. Shelley and s/p laparoscopic cholecystectomy with IOC by Dr. Ryan at the same setting. Patient notes she is having some back pain along with generalized abdominal discomfort. She notes feeling comfortable at this time. She notes Tylenol helped with her pain. She denies nausea, vomiting, fever. She notes overall feeling improved. Objective Data Objective Data Vital Signs: Vital Signs Temp Pulse Resp BP Pulse Ox O2 Del Method O2 Flow Rate 97.5 F L 110 H 18 120/77 92 Room Air 2 03/15/23 02:48 03/15/23 02:48 03/15/23 02:48 03/15/23 02:48 03/15/23 02:48 03/15/23 02:48 03/14/23 17:45 Oxygen Flow Rate (L/min) 2 Oxygen Delivery Method Room Air Weight: 163 lb 15.995 oz Body Mass Index (BMI) 28.1 Intake & Output: Intake and Output for Last 24 Hours 03/13/23 03/14/23 03/15/23 23:59 23:59 23:59 Intake Total 1000 / 1000 2616.67 / 2616.67 330 / 330 Output Total 700 / 700 375 / 375 Balance 1000 / 1000 1916.67 / 1916.67 -45 / -45 Lab / Micro Data 03/15/23 06:55 03/15/23 06:55 Labs: Laboratory Results - last 24 hr 03/14/23 05:55: Hemoglobin A1c 7.2 H 03/14/23 07:55: Urine Color Yellow, Urine Clarity Sl. Cloudy, Urine pH 5.0, Ur Specific [place] 1.020, Urine Protein 15 H, Urine Glucose (UA) Normal, Urine Ketones 50 H, Urine Occult Blood Negative, Urine Nitrite Negative, Urine Bi lirubin Negative, Urine Urobilinogen 1 H, Ur Leukocyte Esterase Negative, Urine RBC 0 SEEN, Urine WBC 0 SEEN, Ur Squamous Epith Cells 0-5 SEEN, Urine Bacteria 0 SEEN, Urine Mucus 0 SEEN 03/14/23 11:15: POC Glucose 118 H 03/14/23 18:04: POC Glucose 197 H 03/14/23 20:17: POC Glucose 220 H 03/15/23 05:30: POC Glucose 250 H 03/15/23 06:55: WBC 15.9 H, RBC 4.56, Hgb 12.9, Hct 40.1, MCV 87.9, MCH 28.3, MCHC 32.2, RDW Std Deviation 42.0, RDW Coeff of Antwon 13.1, Plt Count 229, MPV 11.2, Immature Gran % (Auto) 0.600, Neut % (Auto) 89.3 H, Lymph % (Auto) 5.0 L, [place] % (Auto) 5.0, Eos % (Auto) 0.0, Baso % (Auto) 0.1, Absolute Neuts (auto) 14.2 H, Absolute Lymphs (auto) 0.79 L, Nucleated RBC % 0, Sodium 137, Potassium 3.7, Chloride 105, Carbon Dioxide 22.0, Anion Gap 10, BUN 29 H, Creatinine 1.50 H, Estim Creat Clear Calc 33.00, Est GFR (MDRD) Af Amer 44 L, Est GFR (MDRD) No n-Af 36 L, BUN/Creatinine Ratio 19.3, Glucose 264 H, Calcium 8.8, Total Bilirubin 1.00, AST 40 H, ALT 143 H, Alkaline Phosphatase 112, Total Protein 6.7, Albumin 3.1 L, Globulin 3.6, Albumin/Globulin Ratio 0.9 Radiography Diagnostic Testing: Radiology Impression Endo Retro Cholangiopancreatogram 03/14/23 12:20 IMPRESSION: ERCP as described above. Electronically Signed: Davidson Ingram MD at 14:26 EST , Cholangiogram 03/14/23 14:24 IMPRESSION: Dilated common bile duct with a stent within the common bile duct. Free flow of contrast into the duodenum. Electronically Signed: Aayush Mazariegos MD at 15:03 EST , Physical Exam Const alert, oriented x3 and no apparent distress GI GI Narrative: Abdomen- soft, generalized tenderness. Incisions c/d/i. No erythema or infection noted. Assessment & Plan Assessment/Plan (1) Choledocholithiasis with acute cholecystitis: PLAN: Patient recovering well Pain controlled with Tylenol Ready for discharge Restart Xarelto on Monday Follow-up with our office in 10-14 days Charges/Coding Visit Charges Inpatient E&M: 29622 Subs Hosp L1 (no charge; post-op)
--- NOTE | 2023-03-15 08:58 | DS.PCM_ITS ---
Providers Date of Admission: 03/13/23 Date of Discharge: 03/15/23 Primary Care Physician: Dr. Serge Black MD Consultations 03/13/23 13:21 Consult: Gastroenterology Routine Consulting Provider: [facility] Reason for Consult: Gallstones EMERGENT Consult: No Notified: Yes Date Notified: 03/13/23 Time Notified: 11:50 Method of Notification: Text Consult: General Surgery Routine Consulting Provider: Reza Ryan Reason for Consult: Acute cholecystitis EMERGENT Consult: No Notified: Yes Date Notified: 03/13/23 Time Notified: 11:49 Method of Notification: Text Reason For Visit: ACUTE CHOLECYSTITIS Diagnosis Discharge Diagnosis (1) Cholecystitis, acute with cholelithiasis: Status: Acute Code(s): K80.00 - Calculus of gallbladder with acute cholecystitis without obstruction Plan Patient is a 72-year-old lady transferred from an outside hospital with right upper quadrant abdominal pain with a diagnosis of gallstone with acute cholecystitis 1. Acute cholecystitis ? Secondary to cholelithiasis. Admitted to regular nursing floor currently managed with bowel rest pain medication antinausea medication consultation placed to general surgery Case discussed with Dr. Ryan ? 03/14/2023 patient scheduled to undergo laparoscopic cholecystectomy by Dr. Ryan ? 03/25/2023; patient underwent laparoscopic cholecystectomy following her ERCP 2. Acute cholelithiasis ? Patient presented with acute cholecystitis ultrasound demonstrated dilated CBD. Consult has been placed with Dr. Shelley with gastroenterology for possible ERCP ? 03/14/2023 ERCP scheduled for today by Dr. Shelley ? 03/15/2023; ERCP findings and procedures as below - The entire main bile duct was dilated, with a stone causing an obstruction. - Choledocholithiasis was found. Complete removal was accomplished by biliary sphincterotomy and balloon extraction. - A biliary sphincterotomy was performed. - The biliary tree was swept. - Common bile duct was successfully dilated. - One temporary stent was placed into the common bile duct. 3. Hypertension - Blood pressure controlled, home medications continued with dose adjustment as needed 4. Diabetes mellitus type II -patient's oral hypoglycemics held. Placed on long acting insulin, Accu-Cheks a.c. and at bedtime and covered with sliding scale insulin 5. Paroxysmal A-fib ? Rate controlled on systemic anticoagulation with rivaroxaban 6. Obstructive sleep apnea ? Patient is on CPAP at night 7. Dyslipidemia -Patient is on statin therapy, continued at home dose 8. DVT prophylaxis ? Patient is on rivaroxaban Time spent in the patient's overall evaluation,decision-making process, review of diagnostic data, adjustment of management, discussion with other providers, nursing nursing and ancillary staff involved in patient's care documentation, 40 minutes Medications at Discharge Home Medications carvedilol 25 mg tablet 25 mg PO BID BP 03/19/20 diltiazem HCl 120 mg capsule,extended release 24 hr 240 mg PO DAILY BP 03/19/20 dulaglutide 1.5 mg/0.5 mL subcutaneous pen injector 1.5 mg SQ QWEEK diabetes 03/19/20 lansoprazole 15 mg capsule,delayed release 15 mg PO DAILY GERD 03/19/20 losartan 100 mg tablet 100 mg PO DAILY BP 03/19/20 pravastatin 20 mg tablet 10 mg PO QHS CHOLESTEROL 03/19/20 rivaroxaban 20 mg tablet (Xarelto) 20 mg PO Q24H PRN afib 03/13/23 Hospital Course Operations cholecystecomy Summary of Care Provided Minutes Spent on Discharge: 40 Physical Exam Narrative GENERAL: cooperative HEENT: Atraumatic; normocephalic EYES; Anicteric, Normal Conjunctiva NECK; supple, normal thyroid, RESPIRATORY: Diminished to auscultation CARDIOVASCULAR: Regular S1 S2, GI: soft, normoactive bowel sounds, : No Renal angle tenderness; EXTREMITIES: No edema, no clubbing, MUSCULOSKELETAL: no muscle wasting NEURO: Awake; no lateralizing signs. SKIN: No Rash PSYCH; Flat affect Weight / BMI Weight Weight: 74.389 kg Body Mass Index (BMI) 28.1 ABG / Lab / Microbiology Data 03/15/23 06:55 03/15/23 06:55 Laboratory: Laboratory Results - last 24 hr 03/14/23 05:55: Hemoglobin A1c 7.2 H 03/14/23 07:55: Urine Color Yellow, Urine Clarity Sl. Cloudy, Urine pH 5.0, Ur Specific [place] 1.020, Urine Protein 15 H, Urine Glucose (UA) Normal, Urine Ketones 50 H, Urine Occult Blood Negative, Urine Nitrite Negative, Urine Bilirub in Negative, Urine Urobilinogen 1 H, Ur Leukocyte Esterase Negative, Urine RBC 0 SEEN, Urine WBC 0 SEEN, Ur Squamous Epith Cells 0-5 SEEN, Urine Bacteria 0 SEEN, Urine Mucus 0 SEEN 03/14/23 11:15: POC Glucose 118 H 03/14/23 18:04: POC Glucose 197 H 03/14/23 20:17: POC Glucose 220 H 03/15/23 05:30: POC Glucose 250 H 03/15/23 06:55: WBC 15.9 H, RBC 4.56, Hgb 12.9, Hct 40.1, MCV 87.9, MCH 28.3, MCHC 32.2, RDW Std Deviation 42.0, RDW Coeff of Antwon 13.1, Plt Count 229, MPV 11.2, Immature Gran % (Auto) 0.600, Neut % (Auto) 89.3 H, Lymph % (Auto) 5.0 L, [place] % (Auto) 5.0, Eos % (Auto) 0.0, Baso % (Auto) 0.1, Absolute Neuts (auto) 14.2 H, Absolute Lymphs (auto) 0.79 L, Nucleated RBC % 0, Sodium 137, Potassium 3.7, Chloride 105, Carbon Dioxide 22.0, Anion Gap 10, BUN 29 H, Creatinine 1.50 H, Estim Creat Clear Calc 33.00, Est GFR (MDRD) Af Amer 44 L, Est GFR (MDRD) Non-Af 36 L, BUN/Creatinine Ratio 19.3, Glucose 264 H, Calcium 8.8, Total Bilirubin 1.00, AST 40 H, ALT 143 H, Alkaline Phosphatase 112, Total Protein 6.7, Albumin 3.1 L, Globulin 3.6, Albumin/Globulin Ratio 0.9 Radiography Diagnostic Testing: Radiology Impression Endo Retro Cholangiopancreatogram 03/14/23 12:20 IMPRESSION: ERCP as described above. Electronically Signed: Davidson Ingram MD at 14:26 EST , Cholangiogram 03/14/23 14:24 IMPRESSION: Dilated common bile duct with a stent within the common bile duct. Free flow of contrast into the duodenum. Electronically Signed: Aayush Mazariegos MD at 15:03 EST , Meaningful Use Info Meaningful Use Diagnoses (Choose all that apply): None applicable Discharge Plan Admission Admit Date/Time: 03/13/23 11:39 Attending Provider: Duncan Daniel Primary Care Provider: Serge Black Consulting Providers: Reza Ryan Discharge Orders/Prescriptions Prescriptions: Continued carvedilol 25 MG tablet 25 mg PO BID lansoprazole 15 MG capsule,delayed release(DR/EC) 15 mg PO DAILY diltiazem HCl 120 MG capsule,extended release 24hr 240 mg PO DAILY pravastatin 20 MG tablet 10 mg PO QHS losartan 100 MG tablet 100 mg PO DAILY dulaglutide 1.5 MG/0.5 ML pen injector 1.5 mg SQ QWEEK Xarelto 20 mg tablet 20 mg PO Q24H PRN (Reason: afib) Patient Comments: TAKE 1 TABLET BY MOUTH WITH SUPPER Referrals / Follow Up: Serge Black MD [Primary Care Provider] - Within 1 Week Reza Ryan MD [Med Staff - Active Staff] - Within 2 Weeks Nick Shelley DO [Med Staff - Active Staff] - Within 2 Weeks Disposition Disposition (needs filled in before D/C Order can be placed): Home, Self Care Charges/Coding Visit Charges Inpatient E&M: 31077 Disch Hosp >30min
[2023-03-15 09:15] VITALS: BP 128/76; PULSE 93; RESP 18; TEMP 36.8; O2SAT 97
--- NOTE | 2023-03-15 09:23 | PCM.DC ---
Discharge Instructions Diet Discharge Diet: Light diet - advance as tolerated Activity Discharge Activity: May Not Drive (3 days or while taking narcotic pain medication) Lifting Restrictions: no lifting greater than 10 pounds for 1 week Dressing / Incision Call your doctor if your incision/area has: Continuous Slow Oozing, Sudden Increased Bleeding, Increased Pain/ Swelling, Increased Redness, Foul Smelling Discharge and Swelling at the incision site Call your doctor if you observe: Fever of 101 or Higher Suture Line Care: Avoid Pulling/Pushing and Avoid Pinching/Bending Remove Dressing in: 2 days (Leave steri-strips in place until follow-up visit) Cleanse incision/area with: Soap & Water Follow Up Care Please Follow Up With: Reza Ryan MD When: Please call our office at [phone] to schedule a post-operative appointment for 10-14 days Test Results: Test results from this visit will be discussed in further detail at your follow-up appointment, if applicable. Discharge Plan Admission Admit Date/Time: 03/13/23 11:39 Attending Provider: Duncan Daniel Primary Care Provider: Serge Black Consulting Providers: Reza Ryan Instructions Additional Instructions / Restrictions: Cholecystectomy Diet ? Start light with soups and soft bland foods. You may advance diet as tolerated. Activity ? You may drive in 3 days but not while taking narcotic pain medication. ? Encourage walking. You may go up steps, one at a time. ? Do not swim or use hot tubs for 2 weeks. ? For comfort, you may use warm compresses or ice as needed for 15-20 minutes at a time. Lifting ? You may lift up to 10 pounds for the first 1 weeks. You may advance to 20 pounds for the next 2 weeks. Dressings/Incision ? You may shower OVER your plastic dressings ? Do NOT tub bathe for 1 week ? Leave plastic dressings on for 2 days. ? When plastic dressings are removed, you will find steri strips. It is okay to continue showering with them in place, pat them dry. ? You may remove steri-strips after 1 week or leave in pace until follow-up appointment. Medications ? Anesthesia used during surgery and pain medications may cause constipation. I recommend initiating on the day of surgery a fiber supplement like, Metamucil, Citrucel, FiberCon, Benefiber, or a generic form of these medications. 1 heaping tablespoon in water daily. You may continue to utilize any bowel regimen or oral laxatives that you routinely take. ? As long as you are not intolerant to Tylenol, acetaminophen, ibuprofen, Motrin, Advil, Aleve, or similar medications, I would recommend transitioning to these [id number] medicines as soon as possible instead of continued use of narcotic pain medication. Follow up ? You should call [facility] soon after surgery, at [phone] option 1 to make a follow up appointment for 10-14 days after your surgery. Discharge Orders/Prescriptions Prescriptions: New oxycodone 5 mg Tablet 5 mg PO Q6H PRN (Reason: pain) 3 Days Qty: 9 0RF Continued carvedilol 25 MG tablet 25 mg PO BID lansoprazole 15 MG capsule,delayed release(DR/EC) 15 mg PO DAILY diltiazem HCl 120 MG capsule,extended release 24hr 240 mg PO DAILY pravastatin 20 MG tablet 10 mg PO QHS losartan 100 MG tablet 100 mg PO DAILY dulaglutide 1.5 MG/0.5 ML pen injector 1.5 mg SQ QWEEK Held Xarelto 20 mg tablet 20 mg PO Q24H PRN (Reason: afib) Hold Instructions: Resume on 03/17/23. Patient Comments: TAKE 1 TABLET BY MOUTH WITH SUPPER Referrals / Follow Up: Serge Black MD [Primary Care Provider] - 03/23/23 1:40 pm Reza Ryan MD [Med Staff - Active Staff] - 03/30/23 1:15 pm Nick Shelley DO [Med Staff - Active Staff] - 04/11/23 7:20 am Disposition Disposition (needs filled in before D/C Order can be placed): Home, Self Care
--- NOTE | 2023-03-15 09:45 | CASEMGMT ---
CATY BARRETT Assessment: Face to Face with pt for initial transition planning/care coordination assessment. RN ARNOLD introduced self and role at [facility], pt voices understanding and consents to assessment. Pt is A&O x4 and answers all questions appropriately at this time. Pt sitting up in chair in no distress. Care providers, pharmacy, and demographics verified/updated. Admitting Dx:acute cholecystitis PCP:Sofia Specialists:Rickie, cardio; Kal, sleep apnea Preferred Pharmacy:[facility] Insurance:Jayde Polk [facility] Prescription Benefit: yes LNOK:Flo Romo, Living Arrangements: Pt lives with and grandson in a split level home with 2 steps to enter with a rail. Pt reports she was I in ADL's and denies concerns at home. Transportation: Pt drives self and denies concerns with transportation. DME:CPAP, shower chair, cane, walker HHC/SNF:Denies hx of Pt states no concerns with going home at time of dc. Pt states no further concerns/needs. CM to follow. Advised pt to ask CM if any further question/concerns/needs arise, voices understanding. Pt Goal:Home Plan:Home
[2023-03-15] MEDS: Carvedilol 25 MG Tablet PO (11:02)
[2023-03-15] MEDS: dilTIAZem CD 240 MG Capsule PO (11:02)
[2023-03-15] MEDS: Losartan Potassium 100 MG Tablet PO (11:02)
[2023-03-15] MEDS: Pantoprazole Sodium 40 MG Tablet PO (11:02)
[2023-03-15] MEDS: Acetaminophen 325 MG Tablet 650 MG PO (12:03)
--- NOTE | 2023-03-15 12:05 | PHA.DC_ITS ---
Pharmacy [facility] has performed discharge medication reconciliation and counseling for this patient. Instructed patient to resume Xarelto on 03/17 per discharge note. 1. OXYCODONE 5MG PO Q6H PRN PAIN - PT STATED SHE DOES NOT WANT TO USE THIS, PREFERS TYLENOL, SO I BRIEFLY WENT OVER DIRECTIONS IN CASE SHE ENDS UP PICKING IT UP FROM THE PHARMACY. The patient's discharge medication list was reviewed for discrepancies and discrepancies were resolved. The patient was counseled on the following discharge medications and changes in medications for homegoing were reviewed. The Reason for Use, instructions for use, and potential side effects were reviewed for all new medications. The patient's questions regarding all of their medications were answered. The patient was able to verbally demonstrate an understanding of their discharge medications. Medications at Discharge Home Medications carvedilol 25 mg tablet 25 mg PO BID BP 03/19/20 diltiazem HCl 120 mg capsule,extended release 24 hr 240 mg PO DAILY BP 03/19/20 dulaglutide 1.5 mg/0.5 mL subcutaneous pen injector 1.5 mg SQ QWEEK diabetes 03/19/20 lansoprazole 15 mg capsule,delayed release 15 mg PO DAILY GERD 03/19/20 losartan 100 mg tablet 100 mg PO DAILY BP 03/19/20 pravastatin 20 mg tablet 10 mg PO QHS CHOLESTEROL 03/19/20 rivaroxaban 20 mg tablet (Xarelto) 20 mg PO Q24H PRN afib 03/13/23 oxycodone 5 mg tablet 5 mg PO Q6H PRN pain 3 days #9 tabs 03/15/23
--- NOTE | 2023-03-15 12:11 | CASEMGMT ---
Social Work SW met with pt to discuss advance directives.? Pt confirms she has completed a living will and health care POA naming her Flo Romo.? Pt notified that documents are not on file at [facility] and SW requested they be brought in for scanning into the EMR.? PAMELA Carrillo
[2023-03-15 12:28] VITALS: BP 152/89; PULSE 87; RESP 18; TEMP 37.2; O2SAT 96
[2023-03-15 12:36] LABS: Bedside Glucose 304 mg/dL (74-106)
== END 2023-03-15 12:38 | disposition home or self-care (01) | DRG 419 ==
PROVIDERS: Anesthesiology; Internal Medicine Gastroenterology; Surgery; Admitting Provider Internal Medicine; PCP Family Medicine; Referring Provider Internal Medicine; Visit Provider Internal Medicine
PROC: (CPT 47610; principal; 2023-03-14 13:00)
PROC: (CPT 43260; 2023-03-14 13:00)
DX: K80.63 Calculus of gallbladder and bile duct with acute cholecystitis with obstruction (principal); I48.0 Paroxysmal atrial fibrillation; E11.9 Type 2 diabetes mellitus without complications; I10 Essential (primary) hypertension; G47.33 Obstructive sleep apnea (adult) (pediatric); E78.5 Hyperlipidemia, unspecified; Z79.01 Long term (current) use of anticoagulants; Z79.84 Long term (current) use of oral hypoglycemic drugs; Z79.85 Long-term (current) use of injectable non-insulin antidiabetic drugs; Z79.899 Other long term (current) drug therapy; K21.9 Gastro-esophageal reflux disease without esophagitis
CPT/HCPCS: 47563; 43264; 43274; 00790; 36415; 74300; 74330; 76000; 80048; 80053; 80076; 81001; 82962; 83036; 83735; 84100; 85025; 88304; 96361; 96365; 96366; 96375; 96376; 97802; 99221; J7120; A4216; G0378; G0379; J2405

== ENCOUNTER 2023-05-29 10:07 | Day surgery (SDC) | payer MEDICARE, OTHER, SELFPAY ==
--- NOTE | 2023-05-29 | FLU_PTH ---
PATIENT: MARY JO ROTH LOC: EN U#:[id number] AGE/SX: 72/F ROOM: RE05/29/[address]: Dr. Nick Shelley DO : 1950 BED: DIS: 05/29/2023 SPEC #: [id number] RECD: 05/29/23 13:44 STATUS: DARCI TAMARA #: [id number] MAHOGANY: 05/29/23 00:[address]: Nick Shelley DEPT: CYTOLOGY RECD BY: Denver Alfonso ENTERED: 05/29/23 13:45 SP TYPE: Fluid OTHR DR: Dr. Serge Black MD Tissues: A - Bile duct, NOS B - Bile duct, NOS Procedures: Special Stain Group II Surgery Specimen Level III Surgery Specimen Level IV Cytospin Fluid HEADER OPERATION: ERCP with stent pull and balloon sweep and brushings PRE-OP DIAGNOSIS: Prior choledocholithiasis, S/P ERCP with stent TISSUE SUBMITTED: A- [place] tip, B- Common bile brushings DIAGNOSIS CYTOLOGY A. Tissue from brush tip (cytospins and cellblock); Epithelial cells with atypia. See comment. B. Bile duct brushings (smears); Mild epithelial atypia present. See comment. Am/mr 05/30/2023 AM/mr 05/31/2023 COMMENT A&B. A reactive and or a metaplastic process is favored. However, a malignant process cannot be excluded. Clinical correlation is suggested. Case has been reviewed in consultation with Dr. Flood who concurs with the above diagnosis. IDC:SJ CYTOLOGY STUDY Slides are reviewed. CYTOLOGY GROSS A. Received is 10 ml of cloudy colorless fluid labeled with the patient's name and and designated per the requisition as Clearwater tip. Submitted for cytology preparation including cell block. B. Received are 4 smears labeled with the patient's name and designated per the requisition as Common bile brushings. Submitted for staining. Mr 05/30/23 TC: ? CPT: 90137,15221,40715
--- NOTE | 2023-05-29 | FLU_PTH ---
PATIENT: MARY JO ROTH LOC: EN U#:[id number] AGE/SX: 72/F ROOM: RE05/29/[address]: Dr. Nick Shelley DO : 1950 BED: DIS: 05/29/2023 SPEC #: [id number] RECD: 05/29/23 13:44 STATUS: DARCI TAMARA #: [id number] MAHOGANY: 05/29/23 00:[address]: Nick Shelley DEPT: CYTOLOGY RECD BY: Denver Alfonso ENTERED: 05/29/23 13:45 SP TYPE: Fluid OTHR DR: Dr. Serge Black MD Tissues: A - Bile duct, NOS B - Bile duct, NOS Procedures: Special Stain Group II Surgery Specimen Level III Surgery Specimen Level IV Cytospin Fluid HEADER OPERATION: ERCP with stent pull and balloon sweep and brushings PRE-OP DIAGNOSIS: Prior choledocholithiasis, S/P ERCP with stent TISSUE SUBMITTED: A- Velpen tip, B- Common bile brushings DIAGNOSIS CYTOLOGY A. Tissue from brush tip (cytospins and cellblock); Epithelial cells with mild atypia. See comment. B. Bile duct brushings (smears); Mild epithelial atypia present. See comment. Am/mr 05/30/2023 COMMENT A&B. A reactive and or a metaplastic process is favored. However, a malignant process cannot be excluded. Clinical correlation is suggested. Case has been reviewed in consultation with Dr. Flood who concurs with the above diagnosis. IDC:SJ CYTOLOGY STUDY Slides are reviewed. CYTOLOGY GROSS A. Received is 10 ml of cloudy colorless fluid labeled with the patient's name and and designated per the requisition as Velpen tip. Submitted for cytology preparation including cell block. B. Received are 4 smears labeled with the patient's name and designated per the requisition as Common bile brushings. Submitted for staining. Mr 05/30/23 TC: ? CPT: 17923,26127,07461
--- NOTE | 2023-05-29 10:24 | PCM.HP.BLA ---
History and Physical Date of Admission: 05/29/23 MARY JO ROTH, is a 72 F who presents to the office today for *[facility] hospitalization 03.13.23-03.15.23 for management of cholecystitis/cholelithiasis and chronic conditions HTN, DMII, A.Fib, HAILEE, HLD. Presented to OSH and transferred to [facility] for management of persistent RUQ pain with worsening. GI consulted and ERCP performed. General surgery consulted and cholecystectomy performed. ? CT abd/pel 03.12.23 OSH hepatic fatty infiltration; distended gallbladder, ?trace free fluid, wall thickening; CBD dilation 10mm; mildly prominent right kidney. ? US 03.13.23 OSH hepatic fatty infiltration with ?focal sparing; gallbladder calculi 10mm with wall thickening 4.2mm; CBD dilation 11.2mm without stone. ? ERCP 03.14.23 entire MBD dilated, obstructing stone; choledocholithiasis removed via sphincterotomy/balloon extraction; CBD dilation, stent placed. No specimens ? Laparoscopic cholecystectomy 03.14.23 moderate spillage of tainted bile into peritoneum following inadvertent displacement of ligature clip. ROS Const Constitutional: Positive for fatigue Gastro GI: Positive for abdominal pain, bloating, change in bowel habits, diarrhea, heartburn, excessive flatus and nausea/dyspepsia Musc Musculoskeletal: Positive for back pain, numbness (toes), tingling (toes), Arthritis and leg pain at night Neuro Neurology: Positive for numbness (toes) and tingling (toes) Endo Endocrine: Positive for fatigue Exam Const General: cooperative and comfortable Nutritional Appearance: average body habitus and well nourished [facility] Head: normal to inspection Ears: hearing grossly normal bilaterally Nose: external nose normal Face and sinus: normal facial exam Mouth: oral mucosae normal Throat: posterior oropharynx normal Eyes General: appearance normal, both eyes and all related structures Neck Neck: normal visual inspection Chest Chest palpation & inspection: normal inspection of the chest and normal palpation of entire chest wall Resp Effort & Inspection: normal respiratory effort Auscultation: Bilateral: Clear to Auscultation Cardio Palpation: normal PMI Rate: regular rate Rhythm: regular rhythm GI Inspection: normal to inspection Auscultation: normal bowel sounds Percussion: normal to percussion Palpation: no hepatosplenomegaly Skin General: no rashes or lesions noted Neuro General: patient alert Extrem General: normal to inspection Psych Affect: normal affect Quality Reporting Tobacco Screening ([facility] 138) Smoking Status: Never smoker Assessment and Plan Assessment and Plan (1) Choledocholithiasis: Status: Resolved Plan: Patient is doing well after undergoing ERCP with stone removal. She had temporary stent placed. She had follow-up after she underwent cholecystectomy. She is having some mild intermittent diarrhea. No severe bloating, nausea or abdominal distention. She is doing very well. We will schedule her for repeat ERCP with stent removal or exchange. (2) S/P ERCP: Status: Chronic Comment: with stent placement 03.14.23
[2023-05-29 10:32] VITALS: BP 158/94; PULSE 81; RESP 16; TEMP 36.4; O2SAT 98; BMI 28.0
[2023-05-29 10:44] LABS: Bedside Glucose 140 mg/dL (74-106)
[2023-05-29] MEDS: Lactated Ringers 1,000 ML 15 ML IV (10:49)
--- NOTE | 2023-05-29 11:35 | RAD_ITS ---
STUDY: ERCP. REASON FOR EXAM: Female, 72 years old. Fluoroscopy for ERCP. FLUOROSCOPY TIME (if supplied): ( 2 minutes and 41 seconds ) minutes/seconds. 51.16 mGy. 6 images were submitted. TECHNIQUE: Intraoperative images provided for ERCP. COMPARISON: None. FINDINGS: Intraoperative images provided for ERCP. RAD/ERCP Biliary/Pancreas IMPRESSION: Intraoperative imaging provided for ERCP. Electronically Signed: Aayush Mazariegos MD at 10:35 EDT ,
--- NOTE | 2023-05-29 12:15 | OP.ERCP_ITS ---
Patient Name: Rosaenna Romo Procedure Date: 05/29/2023 11:23 AM Date of : 1950 Age: 72 Procedure: ERCP Indications: Biliary stent removal Providers: Nick Shelley DO Referring MD: Serge Black Medicines: Monitored Anesthesia Care Patient Profile: Her most recent ERCP for stent and ERCP for stone removal was within the past three months. She is status post laparoscopic cholecystectomy. Complications: No immediate complications. Procedure: Pre-Anesthesia Assessment: - Prior to the procedure, a History and Physical was performed, and patient medications and allergies were reviewed. The patient is competent. The risks and benefits of the procedure and the sedation options and risks were discussed with the patient. All questions were answered and informed consent was obtained. Patient identification and proposed procedure were verified by the physician. Mental Status Examination: normal. Prophylactic Antibiotics: The patient does not require prophylactic antibiotics. Prior Anticoagulants: The patient has taken no anticoagulant or antiplatelet agents. ASA Grade Assessment: III - A patient with severe systemic disease. After reviewing the risks and benefits, the patient was deemed in satisfactory condition to undergo the procedure. The anesthesia plan was to use monitored anesthesia care (MAC). Immediately prior to administration of medications, the patient was re-assessed for adequacy to receive sedatives. The heart rate, respiratory rate, oxygen saturations, blood pressure, adequacy of pulmonary ventilation, and response to care were monitored throughout the procedure. The physical status of the patient was re-assessed after the procedure. After obtaining informed consent, the scope was passed under direct vision. Throughout the procedure, the patient's blood pressure, pulse, and oxygen saturations were monitored continuously. The Duodenoscope was introduced through the mouth, and advanced to the duodenum and used to inject contrast into the bile duct and ventral pancreatic duct. The ERCP was accomplished without difficulty. The patient tolerated the procedure well. Scope In: 11:46:39 AM Scope Out: 12:07:35 PM Total Procedure Duration Time 0 hours 20 minutes 56 seconds Findings: The pail tester film was normal. The esophagus was successfully intubated under direct vision. The scope was advanced to a normal major papilla in the descending duodenum without detailed examination of the pharynx, larynx and associated structures, and upper GI tract. The upper GI tract was grossly normal. The bile duct was deeply cannulated with the short-nosed traction sphincterotome. Contrast was injected. I personally interpreted the bile duct and pancreatic duct images. There was brisk flow of contrast through the ducts. Image quality was excellent. Contrast extended to the entire biliary tree. Opacification of the entire biliary tree except for the cystic duct and gallbladder was successful. The maximum diameter of the ducts was 12 mm. The lower third of the main bile duct contained a single localized stenosis 3 mm in length. The lower third of the main bile duct contained one stone, which was 4 mm in diameter. The main bile duct was diffusely dilated, acquired. The largest diameter was 12 mm. A straight Roadrunner wire was passed into the biliary tree. A 5 mm biliary sphincterotomy was made with a traction (standard) sphincterotome using ERBE electrocautery. There was no post-sphincterotomy bleeding. To discover objects, the biliary tree was swept with a 12 mm balloon starting at the bifurcation. Sludge was swept from the duct. All stones were removed. One stent was removed from the biliary tree using a snare. The stent was found to be patent via the water column test. Cells for cytology were obtained by brushing in the lower third of the main bile duct. Impression: - A single localized biliary stricture was found in the lower third of the main bile duct. - The entire main bile duct was dilated, acquired. - Choledocholithiasis was found. Complete removal was accomplished by biliary sphincterotomy and balloon extraction. - A biliary sphincterotomy was performed. - The biliary tree was swept. - One stent was removed from the biliary tree. - Cells for cytology obtained in the lower third of the main duct. Recommendation: Cipro 500 mg once a day x 5 days Flagyl 500 mg twice a day x 5 days Procedure Code(s): --- Professional --- 30478, Endoscopic retrograde cholangiopancreatography (ERCP); with removal of foreign body(s) or stent(s) from biliary/pancreatic duct(s) 79108, Endoscopic retrograde cholangiopancreatography (ERCP); with removal of calculi/debris from biliary/pancreatic duct(s) 45577, Endoscopic retrograde cholangiopancreatography (ERCP); with sphincterotomy/papillotomy 57166, 26, Combined endoscopic catheterization of the biliary and pancreatic ductal systems, radiological supervision and interpretation CPT copyright 2021 [employer]. All rights reserved. The codes documented in this report are preliminary and upon medical insurance coder review may be revised to meet current compliance requirements. Nick Shelley DO 05/29/2023 12:15:22 PM This report has been signed electronically. Number of Addenda: 0 Note Initiated On: 05/29/2023 11:23 AM
--- NOTE | 2023-05-29 12:15 | OP.CCLET_ITS ---
05/29/2023 Serge Black [address] [place] [address] [place] [address] Re : ERCP procedure for Roseanna Romo Dear Dr. Black This procedure was performed on Monday, May 29, 2023. My impressions and recommendations are as follows: Impressions : - A single localized biliary stricture was found in the lower third of the main bile duct. - The entire main bile duct was dilated, acquired. - Choledocholithiasis was found. Complete removal was accomplished by biliary sphincterotomy and balloon extraction. - A biliary sphincterotomy was performed. - The biliary tree was swept. - One stent was removed from the biliary tree. - Cells for cytology obtained in the lower third of the main duct. Recommendations : Cipro 500 mg once a day x 5 days Flagyl 500 mg twice a day x 5 days My findings are described in the full procedure note, which is enclosed. If I can be of further assistance, please feel free to contact me at . Sincerely, Nick Shelley, 05/29/2023 12:15:22 PM This report has been signed electronically.
[2023-05-29 12:19] VITALS: BP 120/76; BP 158/94; PULSE 70; RESP 18; TEMP 36.3; O2SAT 95
[2023-05-29 12:20] VITALS: BP 120/76; BP 158/94; PULSE 69; RESP 18; O2SAT 96
[2023-05-29 12:29] VITALS: BP 109/78; BP 158/94; PULSE 67; RESP 18; O2SAT 100
[2023-05-29 12:35] VITALS: BP 106/73; BP 158/94; PULSE 67; RESP 18; TEMP 36.2; O2SAT 95
[2023-05-29 13:40] VITALS: BP 123/63; BP 158/94; PULSE 75; RESP 16; TEMP 36.1; O2SAT 93
== END 2023-05-29 13:47 | disposition home or self-care (01) ==
LOC: EN 10:07 → AC 10:09
PROVIDERS: PCP Family Medicine; Referring Provider Family Medicine; Visit Provider Internal Medicine Gastroenterology
PROC: (CPT 43260; principal; 2023-05-29 11:10)
DX: K80.51 Calculus of bile duct without cholangitis or cholecystitis with obstruction (principal); E11.9 Type 2 diabetes mellitus without complications; K83.8 Other specified diseases of biliary tract; I10 Essential (primary) hypertension; G47.33 Obstructive sleep apnea (adult) (pediatric); E78.00 Pure hypercholesterolemia, unspecified; K21.9 Gastro-esophageal reflux disease without esophagitis; Z79.899 Other long term (current) drug therapy; Z79.01 Long term (current) use of anticoagulants
CPT/HCPCS: 43275; 43262; 43264; 74330; 76000; 82962; 88108; 88304; 88305; 88313; J7120; J2405

== ENCOUNTER → 2023-07-11 | Outpatient (CLI) | payer MEDICARE, OTHER, SELFPAY ==
--- NOTE | 2023-07-11 09:41 | US_ITS ---
STUDY: ABDOMINAL ULTRASOUND - RIGHT UPPER QUADRANT; ELASTOGRAPHY REASON FOR VISIT: Female, 72 years old. NAFL D TECHNIQUE: Ultrasound evaluation of the right upper quadrant was performed with real-time and static bhatia-scale imaging. Point quantification shear wave elastography was performed ([employer]). TECHNICAL QUALITY: Adequate. COMPARISON: None. FINDINGS: Liver: The liver is enlarged and measures 19.3 cm. There is increased echogenicity consistent with fatty infiltration. The bile ducts are within normal limits. There is hepatic color flow. The direction of portal flow is hepatopetal. There is no demonstrated mass lesion. Median liver stiffness measured 7.5 kPa. Gallbladder: The patient is status post cholecystectomy. Common Bile Duct (C.B.D.): The common bile duct is mildly dilated and measures 9.2 mm. Pancreas: There is normal echogenicity of the visualized pancreas. There is no demonstrated pancreatic mass or cyst. Right Kidney: Normal size of the right kidney. The right kidney measures 11.3 cm x 5.4 cm x 4.5 cm. Normal renal cortex. The right cortex measures 1.1 cm. There is no demonstrated renal mass or cyst. There is no right hydronephrosis. US/ABD Limited w/ Elastography IMPRESSION: 1. Liver stiffness measures 7.5 kPa compatible with F2-F3 (Mild to moderate liver fibrosis) Metavir score. Electronically Signed: Aayush Mazariegos MD at 15:26 EDT ,
== END | disposition home or self-care (01) ==
LOC: US 09:36
PROVIDERS: PCP Family Medicine; Referring Provider Internal Medicine Gastroenterology; Visit Provider Internal Medicine Gastroenterology
DX: K76.0 Fatty (change of) liver, not elsewhere classified (principal)
CPT/HCPCS: 76705; 76981

== ENCOUNTER → 2023-12-29 | Outpatient (CLI) | payer MEDICARE, OTHER, SELFPAY ==
--- NOTE | 2023-12-29 09:41 | US_ITS ---
STUDY: ABDOMINAL ULTRASOUND - RIGHT UPPER QUADRANT; ELASTOGRAPHY REASON FOR VISIT: Female, 73 years old. Fatty infiltration of liver. History of breast cancer. TECHNIQUE: Ultrasound evaluation of the right upper quadrant was performed with real-time and static bhatia-scale imaging. Point quantification shear wave elastography was performed ([employer]). TECHNICAL QUALITY: Adequate. COMPARISON: Comparison is made with prior study July 11, 2023. FINDINGS: Liver: The liver is enlarged and measures 18.2 cm. There is increased echogenicity consistent with fatty infiltration. The bile ducts are mildly dilated. Pneumobilia. The patient has had a history of prior biliary stenting. There is hepatic color flow. The direction of portal flow is hepatopetal. There is no demonstrated mass lesion. Median liver stiffness measured 7.8 kPa. Gallbladder: The patient is status post cholecystectomy. Common Bile Duct (C.B.D.): The common bile duct measures 8.2 mm. Pancreas: There is increased echogenicity of the pancreas. There is a 2.5 cm x 2.3 cm x 0.8 cm hypoechoic well-defined density along the lateral aspect of the splenic portal confluence in the mid abdomen. This may represent a lymph node. Correlation with the CT scan of the abdomen and pelvis are recommended. Right Kidney: Normal size of the right kidney. The right kidney measures 12.1 cm x 5.5 cm x 4.2 cm. Normal renal cortex. The right cortex measures 1 cm. There is no demonstrated renal mass or cyst. There is no right hydronephrosis. US/ABD Limited w/ Elastography IMPRESSION: 1. Liver stiffness measures 7.8 kPa compatible with F2-F3 (Mild to moderate liver fibrosis) Metavir score. 2. 2.5 cm x 2.3 cm x 0.8 cm hypoechoic well-defined nodular density along the lateral aspect of the splenic portal confluence in the mid abdomen. This may represent a lymph node. Correlation with the CT scan of the abdomen recommended. Electronically Signed: Aayush Mazariegos MD at 11:18 EDT ,
== END | disposition home or self-care (01) ==
LOC: US 09:35
PROVIDERS: PCP Family Medicine; Referring Provider Internal Medicine Gastroenterology; Visit Provider Internal Medicine Gastroenterology
DX: K76.0 Fatty (change of) liver, not elsewhere classified (principal)
CPT/HCPCS: 76705; 76981

== ENCOUNTER → 2024-01-16 | Outpatient (CLI) | payer MEDICARE, OTHER, SELFPAY ==
--- NOTE | 2024-01-16 16:43 | CT_ITS ---
STUDY: CT ABDOMEN WITH AND WITHOUT CONTRAST REASON FOR EXAM: Female, 73 years old. Nodular density seen on liver elastography RADIATION DOSAGE (If Supplied By Facility): CTDIvol = ( 17.63 ) mGy, DLP = ( 1666.36 ) mGycm TECHNIQUE: Transaxial images were obtained pre and post I.V. administration of IV 100mL Isovue-300, and oral contrast. Sagittal and coronal images were reconstructed. Individualized dose optimization techniques were used for this CT. COMPARISON: Comparison is made with prior ultrasound of the right upper quadrant dated December 29, 2023. FINDINGS: Minimal increased linear markings at the lung bases suggestive of mild scarring. Coronary artery calcification. There is decreased attenuation of the liver consistent with steatosis. There are surgical clips in the gallbladder fossa consistent with a prior cholecystectomy. Mild degree of pneumobilia due to the prior cholecystectomy and common bile duct exploration. Normal spleen. Normal pancreas. Normal bilateral adrenal glands. Normal right kidney. Normal left kidney. There is a small hiatal hernia. Normal small intestine. Normal colon. The appendix is visualized and appears normal. There is scattered atherosclerotic calcification of the abdominal aorta and its major visceral branches, without a demonstrated aneurysm. Normal inferior vena cava. There is borderline retroperitoneal lymphadenopathy with enlarged nodes no greater than 10mm in the short axis diameter. Normal abdominal wall. There are degenerative changes of the visualized lumbar spine. CT/Abdomen W/WO IV Contrast IMPRESSION: No pancreatic mass is seen. Family physician the liver. Status post cholecystectomy and pneumobilia. Electronically Signed: Aayush Mazariegos MD at 9:36 EST ,
[2024-01-16 17:11] LABS: CREATININE FINGERSTICK < 1.0 mg/dL (0.55-1.02); EGFR FINGERSTICK > 60.0000 mL/min (>60)
== END | disposition home or self-care (01) ==
PROVIDERS: PCP Family Medicine; Referring Provider Student in an Organized Health Care Education/Training Program; Visit Provider Student in an Organized Health Care Education/Training Program
DX: K76.9 Liver disease, unspecified (principal)
CPT/HCPCS: 74170; Q9967

== ENCOUNTER → 2024-07-18 | Outpatient (CLI) | payer MEDICARE, OTHER, SELFPAY ==
--- NOTE | 2024-07-18 09:31 | US_ITS ---
PROCEDURE: ABD LIMITED W/ ELASTOGRAPHY REASON FOR EXAM: NAFLD AND LIVER LESION COMPARISON: Prior CT scan dated January 16, 2024. TECHNIQUE: Right upper quadrant abdominal ultrasound. Exosect ElastQ Imaging shear wave elastography for non-invasive assessment of liver tissue stiffness. Jewel EPIQ Elite. FINDINGS: LIVER: Size: Enlarged (hepatomegaly) Length: 18.5 cm Echotexture: Diffusely echogenic suggesting fatty infiltration Contour: Normal Lesions: None identified Elastography: EQI Med: 7.5 kPa EQI Med Curtis: 1.6 m/s IQR/Med: 22 %* GALLBLADDER: Surgically absent. COMMON BILE DUCT: Dilated measuring up to 10 mm . PANCREAS: Normal. Questionable 2.5 cm x 2.2 cm x 0.9 cm lymph node adjacent to the head of the pancreas. Prior CT scan dated January 16, 2024 and does not demonstrate this. Repeat CT scan recommended. Visualized portions of the right kidney are unremarkable. Incidental note is made of a 6 mm x 8 mm x 5 mm nonobstructive right intrarenal calculus. No right upper quadrant ascites. US/ABD Limited w/ Elastography IMPRESSION: NO TO MILD HEPATIC FIBROSIS Hepatomegaly and fatty infiltration of the liver. Questionable small lymph node adjacent to the head of the pancreas. Reference Values: SRU <1.37 m/s (5.7kPa): No to mild fibrosis 1.37 m/s - 2.2 m/s: Moderate to severe fibrosis >2.2 m/s (15kPa): Significant fibrosis / cirrhosis METAVIR Score F2 or higher: 1.34 m/s (5.7kPa) F3 or higher: 1.55 m/s (7.3kPa) F4: 1.80 m/s (10kPa) * If the IQR/Med is >30%, the variance in the measurements is a large and the a ccuracy of the measurement may be in question. Reading Location: [place] [id number]
== END | disposition home or self-care (01) ==
LOC: US 09:30
PROVIDERS: PCP Family Medicine; Referring Provider Internal Medicine Gastroenterology; Visit Provider Internal Medicine Gastroenterology
DX: K76.0 Fatty (change of) liver, not elsewhere classified (principal)
CPT/HCPCS: 76705; 76981

== ENCOUNTER → 2024-08-21 | Outpatient (CLI) | payer MEDICARE, OTHER, SELFPAY ==
--- NOTE | 2024-08-21 13:49 | CT_ITS ---
PROCEDURE: ABDOMEN/PELVIS WITH CONTRAST 08/21/2024 REASON FOR EXAM: LYMPH NODE ADJACENT TO THE PANCREAS TECHNIQUE: ABDOMEN/PELVIS WITH CONTRAST. Coronal and Sagittal reconstruction series were provided. ORAL CONTRAST TYPE: Patient ingested oral contrast. CONTRAST: Isovue-350 VOLUME: 100 mL One or more dose reduction techniques were used (e.g., Automated exposure control, adjustment of the mA and/or kV according to patient size, use of iterative reconstruction technique. RADIATION DOSE SUMMARY: CTDlvol: 14.82 mGy DLP: 759 mGycm COMPARISON: 01/16/2024. FINDINGS: 5 mm simple cyst in the right hepatic lobe. Prior cholecystectomy. Unchanged pneumobilia. Mild cystocele is noted. Secondary mild bilateral fullness of the collecting systems, probably chronic finding from reflux. Unchanged mildly prominent retroperitoneal lymph nodes with the largest measuring less than 10 mm in its short axis. Unchanged hepatic steatosis. Mild bilateral basilar atelectatic pulmonary changes. Normal extrahepatic biliary system. Normal spleen. Normal pancreas. Normal bilateral adrenal glands. Normal size of the right kidney. There is no right renal mass. There are no right renal calculi. Normal size of the left kidney. There is no left renal mass. There are no left renal calculi. Normal visualized stomach. Normal small intestine. Normal colon. The appendix is visualized and appears normal. There is no demonstrated peritoneal fluid. Normal abdominal aorta. Normal inferior vena cava. Normal retroperitoneum. Normal urinary bladder. There is no pelvic mass lesion or lymphadenopathy. There is no pelvic fluid. Mild diffuse spondylosis. CT/Abdomen/Pelvis WITH Contrast IMPRESSION: 5 mm simple cyst in the right hepatic lobe, unchanged. Prior cholecystectomy. Unchanged pneumobilia. Mild cystocele is noted. Secondary mild bilateral fullness of the collecting systems, probably chronic f inding from reflux. Unchanged mildly prominent retroperitoneal lymph nodes with the largest measuri ng less than 10 mm in its short axis. Unchanged hepatic steatosis. Mild bilateral basilar atelectatic pulmonary changes. Reading Location: [place] [id number]
[2024-08-21 14:19] LABS: CREATININE FINGERSTICK 1.1 mg/dL (0.55-1.02)
== END | disposition home or self-care (01) ==
LOC: CT 13:44
PROVIDERS: PCP Family Medicine; Referring Provider Internal Medicine Gastroenterology; Visit Provider Internal Medicine Gastroenterology
DX: R59.0 Localized enlarged lymph nodes (principal)
CPT/HCPCS: 74177; Q9967

== ENCOUNTER → 2025-02-04 | Outpatient (CLI) | payer MEDICARE, OTHER, SELFPAY ==
--- NOTE | 2025-02-04 10:37 | US_ITS ---
PROCEDURE: ABDOMEN LIMITED 02/04/2025 REASON FOR EXAM: LYMPH NODES, LIVER LESION, FATTY LIVER TECHNIQUE: Procedure Code: USABDL Modality: US Procedure: ABDOMEN LIMITED FINDINGS: GALLBLADDER: Surgically removed. COMMON BILE DUCT: Measures 9.8 mm, tapered to 4mm. No intrahepatic biliary dilatation. LIVER: Hepatomegaly to 18.3 cm. Right hepatic lobe cyst measuring 0.9 x 0.9 x 0.5 cm. Normal echotexture. No definite hepatic mass. RIGHT KIDNEY: Normal in size and echogenicity. No mass. No urinary stones. No hydronephrosis. Pancreas: echogenic Lymph node visualized adjacent to the pancreas measuring 2.3 x 2.4 x 1.1 cm. US/Abdomen Limited IMPRESSION: Enlarged lymph node visualized adjacent to the pancreas measuring 2.3 x 2.4 x 1 .1 cm. Hepatomegaly to 18.3 cm. Right hepatic lobe cyst measuring 0.9 x 0.9 x 0.5 cm. Reading Location: [id number]
== END | disposition home or self-care (01) ==
LOC: US 10:34
PROVIDERS: PCP Family Medicine; Referring Provider Internal Medicine Gastroenterology; Visit Provider Internal Medicine Gastroenterology
DX: K76.89 Other specified diseases of liver (principal); R59.9 Enlarged lymph nodes, unspecified; K76.0 Fatty (change of) liver, not elsewhere classified
CPT/HCPCS: 76705